=== PATIENT | male | born 1955 | race Caucasian/White ===

== ENCOUNTER 2017-03-29 08:49 | Emergency (ER) | payer MEDICARE ==
[2012-04-16 21:26] VITALS: BMI 40.8
== END 2017-03-29 12:17 | disposition home or self-care (01) ==
LOC: D.ER 08:49
DX: S92.352A Displaced fracture of fifth metatarsal bone, left foot, initial encounter for closed fracture (principal); W19.XXXA Unspecified fall, initial encounter; Y93.89 Activity, other specified; Y92.029 Unspecified place in mobile home as the place of occurrence of the external cause; B19.20 Unspecified viral hepatitis C without hepatic coma; I10 Essential (primary) hypertension; F17.200 Nicotine dependence, unspecified, uncomplicated

== ENCOUNTER 2017-06-20 10:00 | Inpatient (IN) | payer MEDICARE, MEDICAID ==
--- NOTE | ~2017-06-20 | DS ---
PATIENT:JOHANNE TAVERASN :57 MEDICAL RECORD: [id number] DISCHARGE SUMMARY ADMISSION DATE: 06/20/17 DISCHARGE DATE: 06/27/17 ADMIT DATE: 06/20/2017 DISCHARGE DATE: 06/27/2017 DISCHARGE DIAGNOSES: 1. Pleuritic chest pain. 2. Pulmonary emboli. 3. Pneumonia. 4. Chronic obstructive pulmonary disease exacerbation. 5. Hemoptysis. 6. Acute cough. 7. Anemia. 8. Hypotension. 9. Coronary artery disease. 10. Gastroesophageal reflux disease. 11. Chronic pain, on methadone use. 12. Chronic deep venous thrombosis in the left superficial femoral vein and popliteal vein. CONSULTS: [facility]adhan IMAGING STUDIES: 1. CT of the chest, which shows pulmonary emboli in the left segmental pulmonary artery with some airspace consolidation in the left lingula suggestive of pneumonia and a small left pleural effusion. 2. Chest x-ray, which shows lingular consolidation. HOSPITAL COURSE: The full H&P is listed elsewhere on the chart for this 61-year-old patient who was admitted with hemoptysis and pleuritic chest pain. The patient underwent CTA of the chest, which was positive for pulmonary emboli as well as pneumonia, was placed in the inpatient setting on broad-spectrum antibiotics including Rocephin and azithromycin. An aggressive pulmonary toilet with DuoNeb, Spiriva were instituted as well as Lovenox 1 mg/kg q.12 hours. GI prophylaxis was also instituted. A venous Doppler did reveal chronic deep vein thrombus changes in the distal left superficial femoral vein and popliteal, but no evidence of an acute DVT. Smoking cessation was discussed with the patient, O2 was titrated during hospitalization, O2 sat greater than or equal to 92%. The patient's clinical condition did improve with aggressive pulmonary toilet, antibiotic therapy was deescalated, the patient was thought to be stable to discharge to home to follow up in the outpatient setting with pulmonology and primary care. See med rec. TRANSINT:[id number] Voice Confirmation ID: [id number] DOCUMENT ID: [id number] Dictated By: BERKLEY WHIPPLE I have interviewed/examined the above patient and agree with these documented findings. DISCHARGE SUMMARY REPORT [id number] NITINJOHANNEJUMANA GARCIA, LUL MCMILLAN at 1341 at 1029 CC: [id number] DICTATION DATE: 07/10/17 0838 DISTANCE EDUCATION FACULTY LIAISON: 07/10/17 1002 DIS IN 06/27/17 [place] [id number] [place] [address]
[2017-06-20 13:11] LABS: BASOPHILS 0.1 % (0-2); EOSINOPHILS 3.3 % (0-7); HEMATOCRIT 38.2 % (42.0-54.0); HEMOGLOBIN 12.8 g/dL (13.5-17.5); IMMATURE GRANULOCYTES 0.4 % (0-5); LYMPHOCYTES 18.3 % (15-50); MCHC 33.5 g/dL (31.0-37.0); MCV 89.5 fL (80.0-100.0); MEAN PLATELET VOLUME 8.9 fL (7.4-10.4); MONOCYTES 11.7 % (2-11); NEUTROPHILS 66.2 % (40-80); PLATELET COUNT 205 10x3/uL (130-400); RBC 4.27 10x6/uL (4.20-6.10); RDW 13.9 % (11.5-14.5)
[2017-06-20 13:34] LABS: ANION GAP 13.2 mmol/L (8-16); BILIRUBIN - TOTAL 0.45 mg/dL (0.2-1.3); CALCIUM 8.7 mg/dL (8.5-10.1); CARBON DIOXIDE 28.1 mmol/L (21.0-32.0); CREATININE - SERUM 1.1 mg/dL (0.6-1.3); POTASSIUM - SERUM 4.3 mmol/L (3.5-5.1)
[2017-06-20 14:22] LABS: APPEARANCE CLEAR (CLEAR); BILIRUBIN NEGATIVE (NEGATIVE); COLOR YELLOW (YELLOW); GLUCOSE NEGATIVE (NEGATIVE); KETONE MODERATE mg/dL (NEGATIVE); NITRITE NEGATIVE (NEGATIVE); PROTEIN NEGATIVE (NEGATIVE)
[2017-06-20 14:23] LABS: BACTERIA FEW /hpf (NONE SEEN); EPITHELIAL CELLS OCC /hpf (0-5); MUCUS <1+ /lpf (NONE SEEN); RED CELLS - URINE OCC /hpf (0-5); SPERMATOZOA PRESENT /hpf (NONE SEEN); WHITE CELLS - URINE OCC /hpf (0-5)
[2017-06-20 18:56] VITALS: BP 134/78
[2017-06-20] MEDS ORDERED: METHADONE10 MG/5 ML PO (23:02)
[2017-06-20] MEDS ORDERED: KLONOPIN1 MG PO (23:03)
[2017-06-20 23:40] VITALS: BP 119/76; BMI 40.8
[2017-06-21 04:00] VITALS: BP 117/69
[2017-06-21 05:16] LABS: BASOPHILS 0.2 % (0-2); EOSINOPHILS 6.1 % (0-7); HEMATOCRIT 38.3 % (42.0-54.0); HEMOGLOBIN 12.6 g/dL (13.5-17.5); IMMATURE GRANULOCYTES 0.5 % (0-5); LYMPHOCYTES 28.6 % (15-50); MCH 29.4 pg (26.0-34.0); MCHC 32.9 g/dL (31.0-37.0); MCV 89.5 fL (80.0-100.0); MEAN PLATELET VOLUME 9.1 fL (7.4-10.4); MONOCYTES 11.6 % (2-11); PLATELET COUNT 215 10x3/uL (130-400); RBC 4.28 10x6/uL (4.20-6.10); RDW 13.9 % (11.5-14.5); WBC 5.9 10x3/uL (4.8-10.8)
[2017-06-21 05:47] LABS: ALBUMIN 2.7 g/dL (3.4-5.0); ANION GAP 12.7 mmol/L (8-16); BILIRUBIN - TOTAL 0.4 mg/dL (0.2-1.3); CALCIUM 8.5 mg/dL (8.5-10.1); CARBON DIOXIDE 28.5 mmol/L (21.0-32.0); CREATININE - SERUM 1.1 mg/dL (0.6-1.3); POTASSIUM - SERUM 4.2 mmol/L (3.5-5.1); PROTEIN - SERUM 6.7 g/dL (6.4-8.2)
[2017-06-21 09:02] VITALS: BP 140/75
[2017-06-21 11:35] VITALS: BMI 40.8
[2017-06-21 12:24] VITALS: BP 130/86
[2017-06-21 16:21] VITALS: BP 115/69
[2017-06-21 20:00] VITALS: BP 138/65
[2017-06-22] VITALS: BP 166/82
[2017-06-22 04:00] VITALS: BP 135/46
[2017-06-22 05:31] LABS: BASOPHILS 0.2 % (0-2); EOSINOPHILS 4.7 % (0-7); HEMATOCRIT 36.7 % (42.0-54.0); HEMOGLOBIN 11.9 g/dL (13.5-17.5); IMMATURE GRANULOCYTES 0.5 % (0-5); MCH 29.2 pg (26.0-34.0); MCHC 32.4 g/dL (31.0-37.0); MEAN PLATELET VOLUME 8.7 fL (7.4-10.4); MONOCYTES 9.8 % (2-11); NEUTROPHILS 58.8 % (40-80); PLATELET COUNT 228 10x3/uL (130-400); RBC 4.08 10x6/uL (4.20-6.10); RDW 13.8 % (11.5-14.5); WBC 6.2 10x3/uL (4.8-10.8)
[2017-06-22 05:35] LABS: APTT 33.4 SECONDS (22.8-39.4); INR 1.03 (0.85-1.17); PROTIME 13.1 SECONDS (11.6-15.0)
[2017-06-22 05:45] LABS: ALBUMIN 2.8 g/dL (3.4-5.0); ANION GAP 12.5 mmol/L (8-16); BILIRUBIN - TOTAL 0.22 mg/dL (0.2-1.3); CALCIUM 8.2 mg/dL (8.5-10.1); CARBON DIOXIDE 27.6 mmol/L (21.0-32.0); CREATININE - SERUM 1.2 mg/dL (0.6-1.3); MAGNESIUM - SERUM 2.1 mg/dL (1.8-2.4); PHOSPHOROUS 3.8 mg/dL (2.5-4.9); POTASSIUM - SERUM 4.1 mmol/L (3.5-5.1); PROTEIN - SERUM 6.6 g/dL (6.4-8.2)
[2017-06-22 08:55] VITALS: BP 130/68
[2017-06-22 13:01] VITALS: BP 112/74
[2017-06-22 16:31] VITALS: BP 141/79
[2017-06-22 20:00] VITALS: BP 140/76
[2017-06-23] VITALS (7 sets, daily range): BP systolic 116–157; BP diastolic 66–84
[2017-06-24 07:57] VITALS: BP 119/80
[2017-06-24 10:08] LABS: PROTEIN S - FREE 74 % (57-157); PROTEIN S - TOTAL 69 % (60-150)
[2017-06-24 11:08] LABS: LUPUS - INTERPRETATION Comment: (()); LUPUS - THROMBIN TIME 18.3 sec (0.0-23.0); LUPUS - dRVVT 38.6 sec (0.0-47.0); PTT-LA 40.8 sec (0.0-51.9)
[2017-06-24 12:08] LABS: PROTEIN S - FREE 61 % (57-157); PROTEIN S - FUNCTIONAL 69 % (63-140); PROTEIN S - TOTAL 68 % (60-150)
[2017-06-24 12:34] VITALS: BP 124/63
[2017-06-24 15:45] VITALS: BP 125/84
[2017-06-24 20:00] VITALS: BP 137/73
[2017-06-24 22:26] VITALS: BP 122/63
[2017-06-25] VITALS: BP 113/58
[2017-06-25 04:00] VITALS: BP 116/73
[2017-06-25 08:45] VITALS: BP 121/77
[2017-06-25 12:31] VITALS: BP 128/87
[2017-06-25 12:46] LABS: BASOPHILS 0.3 % (0-2); EOSINOPHILS 9.7 % (0-7); HEMOGLOBIN 13.6 g/dL (13.5-17.5); IMMATURE GRANULOCYTES 0.5 % (0-5); MCH 29.4 pg (26.0-34.0); MCHC 32.4 g/dL (31.0-37.0); MCV 90.7 fL (80.0-100.0); NEUTROPHILS 61.5 % (40-80); RBC 4.63 10x6/uL (4.20-6.10); WBC 7.6 10x3/uL (4.8-10.8)
[2017-06-25 12:49] LABS: PLATELET COUNT 282 10x3/uL (130-400)
[2017-06-25 13:01] LABS: ALBUMIN 3.3 g/dL (3.4-5.0); ANION GAP 13.9 mmol/L (8-16); BILIRUBIN - TOTAL 0.28 mg/dL (0.2-1.3); CALCIUM 8.7 mg/dL (8.5-10.1); CARBON DIOXIDE 27.1 mmol/L (21.0-32.0); CREATININE - SERUM 1.3 mg/dL (0.6-1.3); PROTEIN - SERUM 7.5 g/dL (6.4-8.2)
[2017-06-25 13:12] LABS: ACLA - IGG AB <9 GPL U/mL (0-14); ACLA - IGM AB 14 MPL U/mL (0-12)
[2017-06-25 16:47] VITALS: BP 123/66
[2017-06-26] VITALS: BP 140/71
[2017-06-26 05:55] LABS: BASOPHILS 0.3 % (0-2); EOSINOPHILS 9.3 % (0-7); HEMATOCRIT 41.5 % (42.0-54.0); HEMOGLOBIN 13.5 g/dL (13.5-17.5); IMMATURE GRANULOCYTES 0.5 % (0-5); LYMPHOCYTES 31.5 % (15-50); MCH 29.4 pg (26.0-34.0); MCHC 32.5 g/dL (31.0-37.0); MCV 90.4 fL (80.0-100.0); MEAN PLATELET VOLUME 8.9 fL (7.4-10.4); MONOCYTES 8.5 % (2-11); NEUTROPHILS 49.9 % (40-80); PLATELET COUNT 259 10x3/uL (130-400); RBC 4.59 10x6/uL (4.20-6.10); RDW 13.8 % (11.5-14.5); WBC 7.3 10x3/uL (4.8-10.8)
[2017-06-26 06:14] LABS: ALBUMIN 3.2 g/dL (3.4-5.0); ANION GAP 11.7 mmol/L (8-16); BILIRUBIN - TOTAL 0.22 mg/dL (0.2-1.3); CALCIUM 8.9 mg/dL (8.5-10.1); CREATININE - SERUM 1.2 mg/dL (0.6-1.3); PROTEIN - SERUM 7.1 g/dL (6.4-8.2)
[2017-06-26 06:24] LABS: POTASSIUM - SERUM 4.7 mmol/L (3.5-5.1)
[2017-06-26 09:02] VITALS: BP 108/65
[2017-06-26 12:45] VITALS: BP 145/97
[2017-06-26 15:24] LABS: PROTEIN C - ANTIGEN 84 % (60-150); PROTEIN C - FUNCTIONAL 115 % (73-180)
[2017-06-26 17:19] VITALS: BP 139/81
[2017-06-26 18:10] LABS: FACTOR II DNA ANALYSIS Negative (())
[2017-06-27] VITALS: BP 119/77
[2017-06-27 04:00] VITALS: BP 119/77
[2017-06-27 05:31] LABS: BASOPHILS 0.1 % (0-2); EOSINOPHILS 8.1 % (0-7); HEMATOCRIT 42.6 % (42.0-54.0); HEMOGLOBIN 13.8 g/dL (13.5-17.5); IMMATURE GRANULOCYTES 0.7 % (0-5); MCH 29.5 pg (26.0-34.0); MCHC 32.4 g/dL (31.0-37.0); MEAN PLATELET VOLUME 8.9 fL (7.4-10.4); MONOCYTES 9.7 % (2-11); NEUTROPHILS 56.4 % (40-80); PLATELET COUNT 245 10x3/uL (130-400); RBC 4.68 10x6/uL (4.20-6.10); RDW 13.9 % (11.5-14.5); WBC 7.5 10x3/uL (4.8-10.8)
[2017-06-27 05:54] LABS: ALBUMIN 3.4 g/dL (3.4-5.0); ANION GAP 10.8 mmol/L (8-16); BILIRUBIN - TOTAL 0.2 mg/dL (0.2-1.3); CALCIUM 8.6 mg/dL (8.5-10.1); CARBON DIOXIDE 30.8 mmol/L (21.0-32.0); CREATININE - SERUM 1.1 mg/dL (0.6-1.3); POTASSIUM - SERUM 4.6 mmol/L (3.5-5.1); PROTEIN - SERUM 7.3 g/dL (6.4-8.2)
[2017-06-27 08:01] VITALS: BP 122/61
[2017-06-27] MEDS ORDERED: IPRAT-ALBUT 0.5-3 ML INH (12:03)
[2017-06-27] MEDS ORDERED: OMNICEF300 MG PO (12:03)
[2017-06-27] MEDS ORDERED: BROVANA15 MCG/2 M INH (12:03)
[2017-06-27] MEDS ORDERED: NICODERM C1 PATCH .1 TRANSDERM (12:03)
[2017-06-27] MEDS ORDERED: ELIQUIS5 MG PO ×2 (12:04→12:05)
[2017-06-27] MEDS ORDERED: BENZONATATE200 MG PO (12:04)
[2017-06-27] MEDS ORDERED: FLORAJEN3 CAPS460 MG PO (12:04)
[2017-06-27] MEDS ORDERED: MUCINEX DM ER1 EAC1 PO (12:04)
[2017-06-27] MEDS ORDERED: PULMICORT0.5 MG/21 UPD (12:04)
[2017-06-28 15:25] LABS: IMMUNOGLOBULIN E 404 IU/mL (0-100)
== END 2017-06-27 13:23 | disposition home health service (06) | DRG 177 ==
LOC: D.ER 10:00 → D.MS 17:47
PROVIDERS: Family Medicine; Internal Medicine Pulmonary Disease; Nurse Practitioner Family
DX: J15.6 Pneumonia due to other Gram-negative bacteria (principal); I26.99 Other pulmonary embolism without acute cor pulmonale; J96.21 Acute and chronic respiratory failure with hypoxia; J44.0 Chronic obstructive pulmonary disease with (acute) lower respiratory infection; J44.1 Chronic obstructive pulmonary disease with (acute) exacerbation; F17.203 Nicotine dependence unspecified, with withdrawal; J90 Pleural effusion, not elsewhere classified; I82.512 Chronic embolism and thrombosis of left femoral vein; I82.532 Chronic embolism and thrombosis of left popliteal vein; J13 Pneumonia due to Streptococcus pneumoniae; E78.5 Hyperlipidemia, unspecified; K21.9 Gastro-esophageal reflux disease without esophagitis; B19.20 Unspecified viral hepatitis C without hepatic coma; I10 Essential (primary) hypertension; I25.10 Atherosclerotic heart disease of native coronary artery without angina pectoris

== ENCOUNTER → 2017-09-07 12:06 | Outpatient (CLI) | payer MEDICARE, MEDICAID ==
[~2017-09-07 12:06] MED LIST: BENZONATATE200 MG PO; BROVANA15 MCG/2 M INH; ELIQUIS5 MG PO; FLORAJEN3 CAPS460 MG PO; IPRAT-ALBUT 0.5-3 ML INH; KLONOPIN1 MG PO; METHADONE10 MG/5 ML PO; MUCINEX DM ER1 EAC1 PO; NICODERM C1 PATCH .1 TRANSDERM; OMNICEF300 MG PO; PULMICORT0.5 MG/21 UPD
== END | disposition home or self-care (01) ==
LOC: D.RT 12:06
DX: R06.02 Shortness of breath (principal)

== ENCOUNTER 2017-12-29 12:01 | Emergency (ER) | payer MEDICARE, MEDICAID ==
[~2017-12-29] VITALS: Ht 170.2 cm; Wt 120.5 kg
[2017-12-29 12:18] VITALS: Ht 170.2 cm; Wt 120.5 kg
[2017-12-29 12:57] LABS: APPEARANCE CLEAR (CLEAR); BILIRUBIN NEGATIVE (NEGATIVE); COLOR YELLOW (YELLOW); GLUCOSE NEGATIVE (NEGATIVE); KETONE NEGATIVE (NEGATIVE); NITRITE NEGATIVE (NEGATIVE); PROTEIN NEGATIVE (NEGATIVE); SPECIFIC GRAVITY 1.025 (1.005-1.020); UROBILINOGEN NORMAL (NORMAL)
[2017-12-29 13:22] LABS: BASOPHILS 0.4 % (0-2); EOSINOPHILS 5.5 % (0-7); HEMATOCRIT 44.7 % (42.0-54.0); HEMOGLOBIN 15.1 g/dL (13.5-17.5); IMMATURE GRANULOCYTES 0.4 % (0-5); LYMPHOCYTES 31.6 % (15-50); MCH 30.5 pg (26.0-34.0); MCHC 33.8 g/dL (31.0-37.0); MCV 90.3 fL (80.0-100.0); MEAN PLATELET VOLUME 9.9 fL (7.4-10.4); MONOCYTES 9.4 % (2-11); NEUTROPHILS 52.7 % (40-80); PLATELET COUNT 172 10x3/uL (130-400); RBC 4.95 10x6/uL (4.20-6.10); RDW 13.3 % (11.5-14.5); WBC 7.5 10x3/uL (4.8-10.8)
[2017-12-29 13:30] LABS: INR 1.07 (0.85-1.17); PROTIME 13.5 SECONDS (11.6-15.0)
[2017-12-29 13:36] LABS: ALBUMIN 3.7 g/dL (3.4-5.0); ANION GAP 8.4 mmol/L (8-16); BILIRUBIN - TOTAL 0.47 mg/dL (0.2-1.3); CALCIUM 8.6 mg/dL (8.5-10.1); CREATININE - SERUM 1.1 mg/dL (0.6-1.3); POTASSIUM - SERUM 4.4 mmol/L (3.5-5.1); PROTEIN - SERUM 6.9 g/dL (6.4-8.2)
[2017-12-29] MEDS ORDERED: MACROBID100 MG PO (17:54)
[2017-12-29 18:19] VITALS: BP 125/68
== END 2017-12-29 18:20 | disposition home or self-care (01) ==
LOC: D.ER 12:01
PROVIDERS: Family Medicine
DX: R86.9 Unspecified abnormal finding in specimens from male genital organs (principal); R10.9 Unspecified abdominal pain; Z87.19 Personal history of other diseases of the digestive system; B19.20 Unspecified viral hepatitis C without hepatic coma; I10 Essential (primary) hypertension; I25.10 Atherosclerotic heart disease of native coronary artery without angina pectoris; J44.9 Chronic obstructive pulmonary disease, unspecified; F17.200 Nicotine dependence, unspecified, uncomplicated

== ENCOUNTER 2018-04-24 11:07 | Emergency (ER) | payer MEDICARE, MEDICAID ==
[~2018-04-24] VITALS: Ht 170.2 cm; Wt 117.9 kg
[~2018-04-24 11:07] MED LIST changes: +MACROBID100 MG PO
[2018-04-24 11:30] VITALS: Ht 170.2 cm; Wt 117.9 kg
[2018-04-24] MEDS ORDERED: ULTRAM50 MG PO (13:15)
[2018-04-24 14:16] VITALS: BP 131/76
== END 2018-04-24 14:16 | disposition home or self-care (01) ==
LOC: D.ER 11:07
DX: M79.661 Pain in right lower leg (principal); J44.9 Chronic obstructive pulmonary disease, unspecified; Z86.718 Personal history of other venous thrombosis and embolism; Z86.19 Personal history of other infectious and parasitic diseases; F17.200 Nicotine dependence, unspecified, uncomplicated

== ENCOUNTER 2018-06-20 16:20 | Emergency (ER) | payer MEDICARE, MEDICAID ==
[~2018-06-20] VITALS: Ht 170.2 cm; Wt 118.2 kg
[~2018-06-20 16:20] MED LIST changes: +ULTRAM50 MG PO
[2018-06-20 16:38] VITALS: Ht 170.2 cm; Wt 118.2 kg
[2018-06-20] MEDS ORDERED: PREDNISONE20 MG PO (18:44)
[2018-06-20 19:12] VITALS: BP 180/89
== END 2018-06-20 19:13 | disposition home or self-care (01) ==
LOC: D.ER 16:20
DX: M25.561 Pain in right knee (principal); M76.9 Unspecified enthesopathy, lower limb, excluding foot

== ENCOUNTER 2018-06-23 11:41 | Emergency (ER) | payer MEDICARE, MEDICAID ==
[~2018-06-23] VITALS: Ht 170.2 cm; Wt 118.2 kg
[~2018-06-23 11:41] MED LIST changes: +PREDNISONE20 MG PO
[2018-06-23 11:52] VITALS: Ht 170.2 cm; Wt 118.2 kg
[2018-06-23] MEDS ORDERED: TALWIN NX1 TAB PO (15:12)
[2018-06-23] MEDS ORDERED: ZOFRAN ODT4 MG/UDTAB PO (15:12)
[2018-06-23 15:32] VITALS: BP 141/81
== END 2018-06-23 15:34 | disposition home or self-care (01) ==
LOC: D.ER 11:41
DX: M25.561 Pain in right knee (principal); E66.9 Obesity, unspecified; Z86.19 Personal history of other infectious and parasitic diseases; I10 Essential (primary) hypertension; I25.10 Atherosclerotic heart disease of native coronary artery without angina pectoris; J44.9 Chronic obstructive pulmonary disease, unspecified; F17.200 Nicotine dependence, unspecified, uncomplicated

== ENCOUNTER → 2018-07-16 11:01 | Outpatient (CLI) | payer MEDICARE, MEDICAID ==
[2018-06-23 11:52] VITALS: BMI 40.8
[~2018-07-16 11:01] MED LIST changes: +TALWIN NX1 TAB PO; +ZOFRAN ODT4 MG/UDTAB PO
== END | disposition home or self-care (01) ==
LOC: D.MRI 09:00
PROVIDERS: ATTEND Nurse Practitioner Family
DX: M17.11 Unilateral primary osteoarthritis, right knee (principal)

== ENCOUNTER 2019-01-02 12:54 | Emergency (ER) | payer MEDICARE, MEDICAID ==
[~2019-01-02] VITALS: Ht 170.2 cm; Wt 118.2 kg
[2019-01-02 12:57] VITALS: Ht 170.2 cm; Wt 118.2 kg
[2019-01-02] MEDS ORDERED: ATARAX 25 MG TA25 MG PO (14:25)
[2019-01-02 15:09] VITALS: BP 143/89
== END 2019-01-02 15:06 | disposition home or self-care (01) ==
LOC: D.ER 12:54
DX: F13.239 Sedative, hypnotic or anxiolytic dependence with withdrawal, unspecified (principal); F41.9 Anxiety disorder, unspecified; T42.4X5A Adverse effect of benzodiazepines, initial encounter; I10 Essential (primary) hypertension; J44.9 Chronic obstructive pulmonary disease, unspecified

== ENCOUNTER 2019-03-22 12:53 | Inpatient (IN) | payer MEDICARE, MEDICAID ==
[~2019-03-22] VITALS: Ht 170.2 cm; Wt 110.7 kg
[~2019-03-22 12:53] MED LIST changes: +ATARAX 25 MG TA25 MG PO
[2019-03-22 13:50] LABS: BASOPHILS 0.1 % (0-2); EOSINOPHILS 0.7 % (0-7); HEMATOCRIT 47.9 % (42.0-54.0); HEMOGLOBIN 15.8 g/dL (13.5-17.5); IMMATURE GRANULOCYTES 0.3 % (0-5); LYMPHOCYTES 20.7 % (15-50); MCH 30.6 pg (26.0-34.0); MCV 92.6 fL (80.0-100.0); NEUTROPHILS 70.2 % (40-80); PLATELET COUNT 224 10x3/uL (130-400); RBC 5.17 10x6/uL (4.20-6.10); RDW 13.5 % (11.5-14.5); WBC 8.7 10x3/uL (4.8-10.8)
[2019-03-22 13:51] LABS: APPEARANCE CLEAR (CLEAR); BILIRUBIN NEGATIVE (NEGATIVE); COLOR STRAW (YELLOW); GLUCOSE NEGATIVE (NEGATIVE); KETONE NEGATIVE (NEGATIVE); NITRITE NEGATIVE (NEGATIVE); PROTEIN NEGATIVE (NEGATIVE); UROBILINOGEN NORMAL (NORMAL)
[2019-03-22 13:58] LABS: CALC OSMOLALITY 279 mosm/kg (275-300); CALCIUM 8.9 mg/dL (8.5-10.1); CARBON DIOXIDE 28.6 mmol/L (21.0-32.0); CHLORIDE - SERUM 100 mmol/L (98-107); CREATININE - SERUM 1.2 mg/dL (0.6-1.3); GLUCOSE 142 mg/dL (74-106); POTASSIUM - SERUM 4.1 mmol/L (3.5-5.1); SODIUM 138 mmol/L (136-145); UREA NITROGEN 17 mg/dL (7-18); eGFR NON AFRICAN AMERICAN 65 mL/min (90-120)
[2019-03-22 13:59] LABS: APTT 63.7 SECONDS (22.8-39.4)
[2019-03-22 14:09] LABS: INR 1.24 (0.85-1.17); PROTIME 15.1 SECONDS (11.6-15.0)
[2019-03-22 14:14] LABS: ALKALINE PHOSPHATASE 78 U/L (46-116); ALT (SGPT) 28 U/L (10-68); BILIRUBIN - TOTAL 0.56 mg/dL (0.2-1.3); CKMB 3.1 U/L (0.0-3.6); CREATINE KINASE 119 UL (21-232); PROTEIN - SERUM 7.8 g/dL (6.4-8.2)
[2019-03-22 14:16] LABS: PRO BNP 0 pg/mL (0-125); TROPONIN-I < 0.017 ng/mL (0.000-0.060)
[2019-03-22 14:17] LABS: ALBUMIN < 3.4 g/dL (3.4-5.0)
--- NOTE | 2019-03-22 15:28 | NUR ---
PATIENT TO RADIOLOGY VIA WHEELCHAIR.
--- NOTE | 2019-03-22 17:50 | NUR ---
PATIENT RETURNED FROM RADIOLOGY;
[2019-03-22 18:14] VITALS: BP 144/88
[2019-03-22 19:20] VITALS: BP 143/82
--- NOTE | 2019-03-22 19:30 | NUR ---
PT ARRIVED TO ROOM. RR EVEN AND UNLABORED. NO S/S OF DISTRESS NOTED. EDUCATED USE OF CALLL LIGHT FOR ASSISTANCE. WILL MONITOR.
[2019-03-22 20:05] VITALS: BP 144/86
[2019-03-22 22:23] VITALS: BP 144/86
[2019-03-22 23:44] VITALS: BP 110/58
--- NOTE | 2019-03-23 02:44 | NUR ---
PT RESTING QUIETLY. NO S/S OF DISTRESS NOTED. NO C/O OR CONCERS EXPRESSED. CALL LIGHT IN REACH, WILL CTM.
[2019-03-23 04:05] VITALS: BP 108/63
[2019-03-23 04:32] LABS: BASOPHILS 0.1 % (0-2); EOSINOPHILS 0.4 % (0-7); HEMATOCRIT 46.2 % (42.0-54.0); IMMATURE GRANULOCYTES 0.3 % (0-5); LYMPHOCYTES 12.3 % (15-50); MCHC 32.5 g/dL (31.0-37.0); MCV 92.4 fL (80.0-100.0); MEAN PLATELET VOLUME 10.5 fL (7.4-10.4); MONOCYTES 2.7 % (2-11); NEUTROPHILS 84.2 % (40-80); PLATELET COUNT 184 10x3/uL (130-400); RDW 13.6 % (11.5-14.5)
[2019-03-23 04:52] LABS: ALBUMIN 3.6 g/dL (3.4-5.0); ANION GAP 13.6 mmol/L (8-16); BILIRUBIN - TOTAL 0.5 mg/dL (0.2-1.3); CALCIUM 8.4 mg/dL (8.5-10.1); CARBON DIOXIDE 25.4 mmol/L (21.0-32.0); CREATININE - SERUM 1.2 mg/dL (0.6-1.3); PROTEIN - SERUM 7.2 g/dL (6.4-8.2)
--- NOTE | 2019-03-23 07:30 | NUR ---
A/A/OX4. SITTING UP ON SIDE OF BED AND ASKING ABOUT GETTING HIS METHADONE ORDERED. STATES HE WAS SUPPPOSED TO HAVE IT AT 6 AM. TOLD HIM I WOULD CONTACT WATER TREATMENT PLANT REPAIRER AND SEE ABOUT GETTING IT ORDERED FOR HIM. CONTACTED [facility] AND ORDER RECEIVED. PT INFORMED HE WOULD BE RECEIVING MED. NO OTHER REQUESTS VOICED. ASSESSMENT COMPLETED. IV PATENT TO LEFT AC WITHOUT REDNESS OR EDEMA. WILL CONTINUE POC.
[2019-03-23 08:08] VITALS: BP 175/77
[2019-03-23 10:21] LABS: UDS - AMPHET NEGATIVE QUAL (NEGATIVE); UDS - BARB NEGATIVE QUAL (NEGATIVE); UDS - BENZO NEGATIVE QUAL (NEGATIVE); UDS - COCAINE NEGATIVE QUAL (NEGATIVE); UDS - OPIATE NEGATIVE QUAL (NEGATIVE); UDS - PCP NEGATIVE QUAL (NEGATIVE); UDS - THC NEGATIVE QUAL (NEGATIVE)
[2019-03-23 11:44] VITALS: BP 136/71
--- NOTE | 2019-03-23 14:13 | NUR ---
I AGREE WITH THE CONCURRENT ASSESSMENT FROM THE ENVIRONMENTAL PROTECTION GEOLOGIST ON STAFF
[2019-03-23 16:27] VITALS: BP 139/97
--- NOTE | 2019-03-23 19:01 | NUR ---
PT AWAKE AND ALERT BED LOW AND LOCKED WITH CALL LIGHT IN REACH DENIES NEEDS AT THIS TIME LCTA SLTY DEMINISHED
[2019-03-23 20:20] VITALS: BP 134/65
[2019-03-24 00:37] VITALS: BP 135/68
--- NOTE | 2019-03-24 02:56 | NUR ---
I have reviewed this patient and I concur with the Shift Assessment completed by the Licensed Practical Nurse today this shift.
[2019-03-24 04:30] VITALS: BP 113/49
[2019-03-24 05:32] LABS: BASOPHILS 0 % (0-2); EOSINOPHILS 0 % (0-7); HEMATOCRIT 40.6 % (42.0-54.0); HEMOGLOBIN 13.2 g/dL (13.5-17.5); IMMATURE GRANULOCYTES 0.2 % (0-5); MCH 29.9 pg (26.0-34.0); MCHC 32.5 g/dL (31.0-37.0); MCV 91.9 fL (80.0-100.0); MEAN PLATELET VOLUME 10.5 fL (7.4-10.4); MONOCYTES 4.4 % (2-11); NEUTROPHILS 88.4 % (40-80); PLATELET COUNT 194 10x3/uL (130-400); RBC 4.42 10x6/uL (4.20-6.10); RDW 13.6 % (11.5-14.5); WBC 8.6 10x3/uL (4.8-10.8)
[2019-03-24 05:40] LABS: ANION GAP 13.5 mmol/L (8-16); CALCIUM 8.3 mg/dL (8.5-10.1); CARBON DIOXIDE 24.2 mmol/L (21.0-32.0); CREATININE - SERUM 1.1 mg/dL (0.6-1.3); POTASSIUM - SERUM 4.7 mmol/L (3.5-5.1)
[2019-03-24 07:57] VITALS: BP 130/70
[2019-03-24 09:25] VITALS: Ht 170.2 cm; Wt 110.7 kg
[2019-03-24 11:37] VITALS: BP 104/71
--- NOTE | 2019-03-24 13:15 | NUR ---
PT STATES HE HAS TO RIDE THE BUS HOME AND THAT IT STOPS RUNNING AT 1700 AND HE FORGOT TO TELL VANESSA THAT SAID HE WAS GOING HOME. DEDE AND SPOKE WITH SANDRA MENDEZ ABOUT THIS AND SHE STATED "OK".
[2019-03-24] MEDS ORDERED: OMNICEF300 MG PO (13:26)
[2019-03-24] MEDS ORDERED: ZITHROMAX500 MG PO (13:26)
[2019-03-24] MEDS ORDERED: STERAPRED DS 1010 MG PO (13:27)
--- NOTE | 2019-03-24 13:53 | NUR ---
I have reviewed this patient and I concur with the Shift Assessment completed by the Licensed Practical Nurse today this shift.
--- NOTE | 2019-03-24 13:54 | NUR ---
UPON ADMIT, PATIENT HAS NOT HAD A FLU SHOT. BEING DISCHARGED ON ORAL ANTIBIOTICS FOR PNEUMONIA. NO FLU SHOT GIVEN.
--- NOTE | 2019-03-24 14:34 | MORECARE ---
CASE MANAGEMENT DISCHARGE SUMMARY PATIENT: MILTON TAVERAS KELLY UNIT: [id number] ADM DATE: 03/22/19 AGE: 63 : 57 SEX: M ROOM/BED: D.2102 AUTHOR: SRINIVAS PAYNE PHYSICIAN: REFERRING PHYSICIAN: LJ SHAW MD DATE OF SERVICE: 03/24/19 Discharge Plan Patient Name: MILTON TAVERAS [facility] [facility] 1955 Planned Disposition: Home Anticipated Discharge Date: 03/24/19 Discharge Date: Expected LOS: 2 Initial Reviewer: [email or web address] Initial Review Date: 03/24/2019 Generated: 03/24/19 3:33 pm Patient Name: MILTON TAVERAS Page 09677 at 1434 All edits/amendments must be made on the electronic document DICTATION DATE: 03/24/19 143 PIECER UP: RADHA 03/24/19 1433 RPT#: [id number] DC DATE: STATUS: ADM IN [facility] [address] [place] [address] END OF REPORT
--- NOTE | 2019-03-24 14:42 | MORECARE ---
CASE MANAGEMENT DISCHARGE SUMMARY PATIENT: MILTON TAVERAS KELLY UNIT: [id number] ADM DATE: 03/22/19 AGE: 63 : 57 SEX: M ROOM/BED: D.2102 AUTHOR: ELMER,DOC PHYSICIAN: REFERRING PHYSICIAN: LJ SHAW MD DATE OF SERVICE: 03/24/19 Discharge Plan Patient Name: IMLTON TAVERAS Facility: [facility]:[place] : 1955 Planned Disposition: Home Anticipated Discharge Date: 03/24/19 Discharge Date: Expected LOS: 2 Initial Reviewer: [email or web address] Initial Review Date: 03/24/2019 Generated: 03/24/19 3:42 pm Comments DCP- Discharge Planning Updated by [email or web address]: Fortunato Cha on 03/24/19 1:[address] Patient Name: MILTON TAVERAS Admission Status: ER Accout number: [id number] Admission Date: 03-22-2019 : 1955 Admission Diagnosis: Attending: COLIN, Current LOS: 2 Anticipated DC Date: 03-24-2019 Planned Disposition: Home Primary Insurance: [facility] MEDICARE SOLUTIONS Discharge Planning Comments: CM MET WITH PT IN ROOM TO DISCUSS DISCHARGE PLANNING AND NEEDS. PT REPORTS LIVING AT HOME INDEPENDENTLY AND ALONE. PT HAS HOME OXYGEN HE USES NEEDED AND A NEBULIZER. PT DOES NOT REMEMBER THE NAME OF HIS MEDICAL EQUIPMENT PROVIDER. PT HAS NO OUTSIDE SERVICES ASSISTING IN THE HOME. CM DISCUSSED AVAILABILITY OF HOME HEALTH, REHAB SERVICES AND MEDICAL EQUIPMENT. PT DENIES DISCHARGE NEEDS, REPORTS HE WILL BE RIDING THE [employer] BUS FOR DISCHARGE HOME TODAY. SALES AGENT TRADING STAMPS NURSE NOTIFIED. Tower Truck Driver: Fortunato Cha DCPIA - Discharge Planning Initial Assessment Updated by [email or web address]: Fortunato Cha on 03/24/19 2:36 pm * Is the patient Alert and Oriented? Yes * How many steps to enter\exit or inside your home? ELEVATOR * PCP DR. DOBSON * Pharmacy [facility] * Preadmission Environment Home Alone * ADLs Independent * Equipment Nebulizer Oxygen * Other Equipment UNKNOWN MEDICAL EQUIPMENT PROVIDER * List name and contact numbers for known caregivers / representatives who currently or will assist patient after discharge: DARREN BANGURA, FRIEND, * Verbal permission to speak to the caregivers and representatives has been obtained from the patient. N/A * Community resources currently utilized None * Please name any agencies selected above. NONE * Additional services required to return to the preadmission environment? No * Can the patient safely return to the preadmission environment? Yes * Has this patient been hospitalized within the prior 30 days at any hospital? No Last DP export: 03/24/19 1:34 p Patient Name: MILTON TAVERAS Page 20574 at 1442 All edits/amendments must be made on the electronic document DICTATION DATE: 03/24/19 144 FORMER HAND: RADHA 03/24/19 1442 RPT#: [id number] DC DATE: STATUS: ADM IN [facility] [address] [place] [address] END OF REPORT
--- NOTE | 2019-03-24 15:30 | NUR ---
LEFT AC 20G IV DC'D WITH CATH INTACT. DISCHARGE INSTRUCTIONS GIVEN TO PT AND ALL QUESTIONS ANSWERED. PT WANTING SOMETHING THAT HAS THAT HE TOOK METHADONE WHILE HE WAS HERE THAT HE CAN GIVE TO THE CLINIC SO HE CAN GET HIS NEXT SCRIT. I VERBALIZED UNDERSTANDING. DE SWARTZ AND I PRINTED THE ORDER FOR METHADONE AND THIS NURSE GAVE PT THE COPY. PT SIGNED DISCHARGE PAPERS. PT WAITING FOR NEXT BUS TO COME BEFORE BEING TAKEN DOWN.
--- NOTE | 2019-03-24 16:25 | NUR ---
[facility] TO [facility] WITH BELONG[facility] TO WAIT ON BUS.
== END 2019-03-24 16:26 | disposition home or self-care (01) | DRG 194 ==
LOC: D.ER 12:53 → D.M2 18:58
PROVIDERS: Family Medicine; ADMIT Family Medicine; ATTEND Family Medicine
DX: J18.1 Lobar pneumonia, unspecified organism (principal); J44.0 Chronic obstructive pulmonary disease with (acute) lower respiratory infection; N17.9 Acute kidney failure, unspecified; J44.1 Chronic obstructive pulmonary disease with (acute) exacerbation; M50.30 Other cervical disc degeneration, unspecified cervical region; M51.36 Other intervertebral disc degeneration, lumbar region; M51.34 Other intervertebral disc degeneration, thoracic region; B19.20 Unspecified viral hepatitis C without hepatic coma; F41.9 Anxiety disorder, unspecified; I10 Essential (primary) hypertension; D64.9 Anemia, unspecified; I25.10 Atherosclerotic heart disease of native coronary artery without angina pectoris

== ENCOUNTER 2020-02-26 10:56 | Emergency (ER) | payer MEDICARE, MEDICAID ==
[~2020-02-26] VITALS: Ht 170.2 cm; Wt 118.2 kg
[~2020-02-26 10:56] MED LIST changes: +STERAPRED DS 1010 MG PO; +ZITHROMAX500 MG PO
[2020-02-26 10:59] VITALS: BP 149/92; Ht 170.2 cm; Wt 118.2 kg
[2020-02-26] MEDS ORDERED: KLONOPIN0.5 MG (11:02)
[2020-02-26 12:04] LABS: BASOPHILS 0.3 % (0-2); EOSINOPHILS 1.3 % (0-7); HEMATOCRIT 41.9 % (42.0-54.0); HEMOGLOBIN 14.5 g/dL (13.5-17.5); IMMATURE GRANULOCYTES 0.3 % (0-5); LYMPHOCYTES 25.9 % (15-50); MCH 31.3 pg (26.0-34.0); MCHC 34.6 g/dL (31.0-37.0); MCV 90.3 fL (80.0-100.0); MONOCYTES 5.7 % (2-11); NEUTROPHILS 66.5 % (40-80); PLATELET COUNT 163 10x3/uL (130-400); RBC 4.64 10x6/uL (4.20-6.10); RDW 13.2 % (11.5-14.5); WBC 6.4 10x3/uL (4.8-10.8)
[2020-02-26 12:17] LABS: APTT 26.1 SECONDS (22.8-39.4); INR 0.94 (0.85-1.17); PROTIME 12.6 SECONDS (11.6-15.0)
[2020-02-26 12:21] LABS: CALC OSMOLALITY 275 mosm/kg (275-300); CALCIUM 8.6 mg/dL (8.5-10.1); CHLORIDE - SERUM 104 mmol/L (98-107); CREATININE - SERUM 1.1 mg/dL (0.6-1.3); GLUCOSE 124 mg/dL (74-106); SODIUM 138 mmol/L (136-145); UREA NITROGEN 9 mg/dL (7-18); eGFR NON AFRICAN AMERICAN 72 mL/min (90-120)
[2020-02-26 12:30] LABS: ALBUMIN 3.7 g/dL (3.4-5.0); ALKALINE PHOSPHATASE 69 U/L (30-120); ALT (SGPT) 25 U/L (10-68); PROTEIN - SERUM 6.5 g/dL (6.4-8.2)
[2020-02-26 12:33] LABS: TROPONIN-I < 0.017 ng/mL (0.000-0.060)
[2020-02-26 15:14] LABS: BILIRUBIN NEGATIVE (NEGATIVE); KETONE SMALL mg/dL (NEGATIVE); NITRITE NEGATIVE (NEGATIVE); UROBILINOGEN NORMAL mg/dL (< 2)
[2020-02-26 15:26] LABS: UDS - AMPHET NEGATIVE QUAL (NEGATIVE); UDS - BARB NEGATIVE QUAL (NEGATIVE); UDS - BENZO NEGATIVE QUAL (NEGATIVE); UDS - COCAINE NEGATIVE QUAL (NEGATIVE); UDS - OPIATE NEGATIVE QUAL (NEGATIVE); UDS - PCP NEGATIVE QUAL (NEGATIVE); UDS - THC NEGATIVE QUAL (NEGATIVE)
== END 2020-02-26 17:49 | disposition home or self-care (01) ==
LOC: D.ER 10:56
PROVIDERS: Family Medicine
DX: R51.9 Headache, unspecified (principal); B34.8 Other viral infections of unspecified site; R11.2 Nausea with vomiting, unspecified; I10 Essential (primary) hypertension; J44.9 Chronic obstructive pulmonary disease, unspecified; Z72.0 Tobacco use

== ENCOUNTER 2020-08-04 11:38 | Emergency (ER) | payer MEDICARE, MEDICAID ==
[~2020-08-04] VITALS: Ht 170.2 cm; Wt 108.6 kg
[~2020-08-04 11:38] MED LIST changes: +KLONOPIN0.5 MG PO
[2020-08-04 11:42] VITALS: BP 134/81; Ht 170.2 cm; Wt 108.6 kg
[2020-08-04] MEDS ORDERED: HYDROCODON-ACE1 EAC7 PO (12:23)
== END 2020-08-04 12:43 | disposition home or self-care (01) ==
LOC: D.ER 11:38
DX: S82.491A Other fracture of shaft of right fibula, initial encounter for closed fracture (principal); M25.571 Pain in right ankle and joints of right foot; M79.10 Myalgia, unspecified site; J44.9 Chronic obstructive pulmonary disease, unspecified; W01.10XA Fall on same level from slipping, tripping and stumbling with subsequent striking against unspecified object, initial encounter; Y93.9 Activity, unspecified; Y92.9 Unspecified place or not applicable

== ENCOUNTER 2020-08-06 09:13 | Day surgery (SDC) | payer MEDICARE, MEDICAID ==
[~2020-08-06] VITALS: Ht 170.2 cm; Wt 108.6 kg
[~2020-08-06 09:13] MED LIST changes: +HYDROCODON-ACE1 EAC7 PO
[2020-08-06 13:26] VITALS: BP 133/76; BMI 37.5
[2020-08-06 13:27] LABS: BASOPHILS 0.3 % (0-2); EOSINOPHILS 2.1 % (0-7); HEMATOCRIT 45.9 % (42.0-54.0); HEMOGLOBIN 14.9 g/dL (13.5-17.5); IMMATURE GRANULOCYTES 0.1 % (0-5); LYMPHOCYTE ABS# 1.82 10x3/uL (1.32-3.57); LYMPHOCYTES 25.2 % (15-50); MCH 29.6 pg (26.0-34.0); MCHC 32.5 g/dL (31.0-37.0); MCV 91.1 fL (80.0-100.0); MEAN PLATELET VOLUME 10.1 fL (7.4-10.4); MONOCYTES 10.8 % (2-11); NEUTROPHIL ABS# 4.43 10x3/uL (1.78-5.38); NEUTROPHILS 61.5 % (40-80); PLATELET COUNT 179 10x3/uL (130-400); RBC 5.04 10x6/uL (4.20-6.10); RDW 13.5 % (11.5-14.5); WBC 7.2 10x3/uL (4.8-10.8)
[2020-08-06 13:33] LABS: ALBUMIN 3.8 g/dL (3.4-5.0); ANION GAP 10.4 mmol/L (8-16); BILIRUBIN - TOTAL 0.58 mg/dL (0.2-1.3); CALCIUM 8.7 mg/dL (8.5-10.1); CREATININE - SERUM 1.2 mg/dL (0.6-1.3); POTASSIUM - SERUM 4.4 mmol/L (3.5-5.1); PROTEIN - SERUM 7.2 g/dL (6.4-8.2)
[2020-08-06 16:23] VITALS: BP 128/73
[2020-08-06 16:46] VITALS: BP 123/68; Ht 170.2 cm; Wt 108.6 kg
[2020-08-06 20:00] VITALS: BP 104/58
[2020-08-07] VITALS: BP 145/68
[2020-08-07 04:00] VITALS: BP 99/62
[2020-08-07 06:24] LABS: BASOPHILS 0 % (0-2); EOSINOPHILS 0 % (0-7); HEMATOCRIT 42.6 % (42.0-54.0); HEMOGLOBIN 13.8 g/dL (13.5-17.5); IMMATURE GRANULOCYTES 0.1 % (0-5); LYMPHOCYTE ABS# 0.64 10x3/uL (1.32-3.57); LYMPHOCYTES 7.7 % (15-50); MCH 29.6 pg (26.0-34.0); MCHC 32.4 g/dL (31.0-37.0); MCV 91.4 fL (80.0-100.0); MEAN PLATELET VOLUME 10.7 fL (7.4-10.4); MONOCYTES 6.2 % (2-11); NEUTROPHIL ABS# 7.17 10x3/uL (1.78-5.38); PLATELET COUNT 201 10x3/uL (130-400); RBC 4.66 10x6/uL (4.20-6.10); RDW 13.4 % (11.5-14.5); WBC 8.3 10x3/uL (4.8-10.8)
[2020-08-07 06:38] LABS: ALBUMIN 3.2 g/dL (3.4-5.0); ALKALINE PHOSPHATASE 70 U/L (30-120); ALT (SGPT) 19 U/L (10-68); CALCIUM 8.4 mg/dL (8.5-10.1); CARBON DIOXIDE 26.3 mmol/L (21.0-32.0); CHLORIDE - SERUM 105 mmol/L (98-107); POTASSIUM - SERUM 4.5 mmol/L (3.5-5.1); PROTEIN - SERUM 6.4 g/dL (6.4-8.2); SODIUM 137 mmol/L (136-145); eGFR NON AFRICAN AMERICAN 80 mL/min (90-120)
[2020-08-07 06:40] LABS: CALC OSMOLALITY 276 mosm/kg (275-300); GLUCOSE 154 mg/dL (74-106); UREA NITROGEN 13 mg/dL (7-18)
--- NOTE | 2020-08-07 08:31 | NUR ---
PT ASSISTED TO SIT ON THE SIDE OF THE BED SO HE CAN URINATE. VOICES UNDERSTANDING THAT WE NEED TO WAIT ON PT TO GET UP AND AROUND. CL IN REACH. NO FURTHER NEEDS AT THIS TIME. PT STATES HE WOULD LIKE SOME PRUNE JUICE LATER. WCTM
[2020-08-07 09:16] VITALS: BP 113/64
--- NOTE | 2020-08-07 10:33 | NUR ---
PT CALLED ME INTO HIS ROOM AND STATED THAT SOMEONE TOOK HIS 65 DOLLARS. THEY DID NOT SEE HIS STATED 600 DOLLARS IS STILL IN HIS BLACK WALLET AND THAT THEY DIDN'T TAKE IT BECAUSE THEY DIDN'T SEE IT. ASKED PT IF HE MIGHT'VE PLACED IT IN HIS LOCK BOX. WHICH HE DID NOT WE LOOKED. WE DID PLACE PT BLACK WALLET INTO THE LOCK BOX WITH HIS MEDS. PT HAS CARLOS AROUND HIS NECK. NO MONEY WAS FOUND IN PATIENTS OTHER BELONGINGS. CALLED ER TO SPEAK WITH THE PEOPLE WHO ARE IN CHARGE OF THE SAFE. THERE IS NOTHING IN THE SAFE FOR HIM. CALLED KERLINE BREWER RN TO NOTIFY HER. SHE TOLD ME TO HAVE PT CALL ADMINISTRATION OR JACKER SUNDAY. WILL ADVISE PT OF THIS. CL IN REACH. JASS
--- NOTE | 2020-08-07 12:49 | NUR ---
MEDICATIONS AND 600 DOLLARS TAKEN TO PHARMACY IN PT LOCK BOX. CL IN REACH. COUNTED MEDS WITH SHERIDAN RITTER. CL IN REACH. NO FURHTER NEEDS AT THIS TIME. JASS
[2020-08-07 14:22] VITALS: BP 113/65
[2020-08-07 18:32] VITALS: BP 114/60
[2020-08-07 21:25] VITALS: BP 135/54
[2020-08-08 05:41] VITALS: BP 123/75
[2020-08-08 05:53] LABS: BASOPHILS 0.3 % (0-2); EOSINOPHILS 1.1 % (0-7); HEMATOCRIT 39.3 % (42.0-54.0); HEMOGLOBIN 12.8 g/dL (13.5-17.5); IMMATURE GRANULOCYTES 0.1 % (0-5); LYMPHOCYTE ABS# 2.19 10x3/uL (1.32-3.57); LYMPHOCYTES 30.9 % (15-50); MCH 29.7 pg (26.0-34.0); MCHC 32.6 g/dL (31.0-37.0); MCV 91.2 fL (80.0-100.0); MEAN PLATELET VOLUME 10.9 fL (7.4-10.4); MONOCYTES 8.6 % (2-11); NEUTROPHIL ABS# 4.17 10x3/uL (1.78-5.38); PLATELET COUNT 169 10x3/uL (130-400); RBC 4.31 10x6/uL (4.20-6.10); RDW 13.5 % (11.5-14.5); WBC 7.1 10x3/uL (4.8-10.8)
[2020-08-08 06:32] LABS: ANION GAP 9.6 mmol/L (8-16); BILIRUBIN - TOTAL 0.17 mg/dL (0.2-1.3); CALCIUM 8.1 mg/dL (8.5-10.1); CARBON DIOXIDE 29.2 mmol/L (21.0-32.0); CREATININE - SERUM 1.1 mg/dL (0.6-1.3); POTASSIUM - SERUM 3.8 mmol/L (3.5-5.1); PROTEIN - SERUM 5.9 g/dL (6.4-8.2)
[2020-08-08] MEDS ORDERED: ASPIRIN81 MG PO (07:18)
--- NOTE | 2020-08-08 07:25 | OP ---
PATIENT NAME: MILTON CORONADO MEDICAL RECORD: [id number] :57 LOCATION:D.MS [id number] ADMISSION DATE: SURGEON: MIGUEL LEWIS DO DATE OF OPERATION: 08/06/2020 PROCEDURE PERFORMED: Right distal fibula open reduction and internal fixation. PREOPERATIVE DIAGNOSIS: Right distal fibula fracture, displaced. POSTOPERATIVE DIAGNOSIS: Right distal fibula fracture, displaced. INDICATIONS: Mr. Coronado is a 64-year-old male who fractured his right distal fibula, was seen in the ER and then brought to my clinic I believe yesterday and x-rays that were taken were seen. We informed him we need to fix this as it was displaced and can displace more and his talus could sublux laterally and he will have ankle problems the rest of his life. He was aware of that and he was okay with kind of fix. He was also aware of the risks of infection, bleeding, damage to nerves or vessels in the area, continued pain, blood clots, need for hardware removal, failure of implants, permanent nerve damage and even and signed the consent. SURGEON: Miguel Lewis DO. DESCRIPTION OF PROCEDURE: The patient received a block by anesthesia in the preoperative area, taken to the operative suite, given 2 grams of Ancef, sedated and LMA was placed in the supine position. The right lower extremity was then prepped and draped in sterile fashion. A timeout was performed and everyone was in agreement with correct side, site, patient and procedure. I then exsanguinated the right lower extremity. The tourniquet was inflated to 350 mmHg and it was up for 23 minutes. I then made an incision over the fibula and made careful dissection down to the fibula, cleared out the fracture site and reduced it with a [id number] and put on a Regis plate and pinned into place. Once this was in adequate position on AP and lateral, I put a proximal screw in the shaft and then 4 screws distally and another locking screw in the shaft. I then removed the K-wires. X-rays were taken in AP and mortise views. Stress view did not widen medially and in lateral, everything was in good position. We then irrigated and closed with 2-0 Vicryl in inverted interrupted fashion. The tourniquet was then let down. He was then dressed with a ZipLine and Adaptic, 4 x 4, ABD on the heel and wrapped up with cast padding and then a 4 x 30 splint posteriorly and secured with an Shiv wrap. He was then awakened and taken to recovery in stable condition. BLOOD LOSS: Minimal. COMPLICATIONS: None. TRANSINT:[id number] Voice Confirmation ID: [id number] DOCUMENT ID: [id number] OPERATIVE REPORT [id number] MILTON CORONADO,MIGUEL Sibley DO at 0725 CC: [id number] DICTATION DATE: 08/06/20 1532 ELECTRICIAN DECK: 08/07/20 0114 REG [facility] [address] [place] [address]
[2020-08-08 08:26] VITALS: BP 152/76
--- NOTE | 2020-08-08 10:16 | MORECARE ---
CASE MANAGEMENT DISCHARGE SUMMARY PATIENT: MILTON TAVERAS UNIT: [id number] ADM DATE: 08/06/20 AGE: 64 : 57 SEX: M ROOM/BED: D.2213 AUTHOR: SRINIVAS PAYNE PHYSICIAN: REFERRING PHYSICIAN: SHELDON LEWIS DO DATE OF SERVICE: 08/08/20 Case Management Discharge Planning Summary COMMENTS ENTERED DATE: 08/08/20 10:14 CT COMMENT TYPE: Discharge Planning REVIEWER: Demetrio Eisenberg CM met with patient to complete DC plan and to evaluate needs. Patient stated that he lives alone, independently. At discharge, the patient plans to return home and feels this is a safe discharge. CM discussed availability of home health, rehab services, and medical equipment. Patient declined HHS, SNF, and IPR. Patient stated that he needs a wheelchair. Crutches noted at bedside. Coordination with [facility] for wheelchair underway. ALBERTO signed and placed on chart. Clinicals and Wheelchair Request faxed to [facility]. Patient voiced no other needs at this time and is satisfied with DC plan. Transportation provider at discharge will be with his girlfriend, Darren Bangura ([phone]). DC IMM delivered, explained, signed by the patient, and placed in chart. Signed form also left with the patient. CM will continue to follow and will assist as needed with dc plans/needs. DCP REVIEW SUMMARY ANTICIPATED D/C DATE: 08/08/2020 EXPECTED LOS : 2 CASE STATUS: DCP Initiated INITIAL REVIEW: 08/08/2020 INITIAL REVIEWER: Demetrio Eisenberg FINAL DISCHARGE DISPOSITION: : FINAL REVIEWER: FINAL REVIEW DATE: DCP Focus Questions & Answers DCP REV -DCP Review Added on: 08/08/20 10:13 am QUESTION: ANSWER DCP Evaluation Patient gives permission to discuss discharge plans with: (name, relationship and number) : DARREN BANGURA girlfriend Phone# unverified Physical Status: : Independent with ADL's Baseline cognitive status: : *Oriented to person, place, situation, time and present Patient's ability to cope with chronic illness : d. No chronic illness Living Arrangements: : Home Alone with Support Medication Management: : Patient states can afford medications Does Patient have transportation to get home and to follow-up medical appointments when discharged from the hospital? : Yes Does the patient have electricity at home? : Yes Does the patient have running water in their house? : Yes Equipment in use: : Crutches Mental health screen: : No mental health history Patient's current cognitive status: : *Oriented to person, place, situation, time and present Functional screen assessment: : Basic needs can adequately be met by self Patient with capacity for self-care or can be cared for in same environment as prior to hospitalization? : Yes Does the patient have the ability to pay for or attain post discharge needs / services? : Yes Is there a likelihood that the patient will require additional services to return to the preadmission environment? : Yes Patient and/or caregiver agree upon recommended discharge plan? : Yes Equipment needed for post hospitalization: : Wheelchair Physical environment modification needed / anticipated for discharge: : No Planned post hospital services available for patient? : Yes Would patient like to participate in any Care Coordination programs (if applicable): : Not applicable DCP Re-evaluation Would patient like to participate in any Care Coordination programs (if applicable): : Not applicable PATIENT: MILTON TAVERAS ENCOUNTER: [id number] MEDICAL RECORD#: [id number] ADMISSION DATE: 08/06/2020 DISCHARGE DATE: ATTENDING MD: SHELDON BARRIENTOS : AGE: 64 MARITAL STATUS: S DC PLAN ID: [id number] FACILITY: [facility] PRINTED ON: 08/08/20 10:16 CT All edits/amendments must be made on the electronic document DICTATION DATE: 08/08/20 1016 TIGHT COOPER: RADHA 08/08/20 1016 RPT#: [id number] DC DATE: STATUS: [facility] [address] [place] [address] END OF REPORT
--- NOTE | 2020-08-08 10:19 | NUR ---
RECIEVED MEDICATIONS AND 600$ FROM PHARMACY. RECOUNTED BY SHERIDAN IVAN AND MYSELF. THERE WAS ONE METHADONE LIQUID THAT I MISSED COUNTING YESTERDAY. 7 HYDROCODONE'S 5325. 54 CLONAZEPAM 2 MG. 23 EMPTY METADON LIQUID 100 MG. 4 100 MG METHADONE LIQUID RETURNED.
--- NOTE | 2020-08-08 14:49 | NUR ---
IV THERAPY REMOVED FROM LEFT FOREARM WITH TIP INTACT. DISCHARGE INSTRUCTIONS GIVEN. PT VERBALIZED UNDERSTANDING. PT ALSO VERBALIZED UNDERSTANDING OF CALLING DR LEWIS'S OFFICE AND GETTING A FOLLOW UP APPOINTMENT. PT NOW REQUESTING HOME HEALTH. I INFORMED SAMIR WITH CASE MANAGEMENT. CL IN REACH. LEILATM
--- NOTE | 2020-08-08 17:27 | MORECARE ---
CASE MANAGEMENT DISCHARGE SUMMARY PATIENT: MILTON TAVERAS UNIT: [id number] ADM DATE: 08/06/20 AGE: 64 : 57 SEX: M ROOM/BED: AUTHOR: ELMER,DOC PHYSICIAN: REFERRING PHYSICIAN: SHELDON LEWIS DO DATE OF SERVICE: 08/08/20 Case Management Discharge Planning Summary COMMENTS ENTERED DATE: 08/08/20 10:14 CT COMMENT TYPE: Discharge Planning REVIEWER: Demetrio Eisenberg CM met with patient to complete DC plan and to evaluate needs. Patient stated that he lives alone, independently. At discharge, the patient plans to return home and feels this is a safe discharge. CM discussed availability of home health, rehab services, and medical equipment. Patient declined HHS, SNF, and IPR. Patient stated that he needs a wheelchair. Crutches noted at bedside. Coordination with [facility] for wheelchair underway. ALBERTO signed and placed on chart. Clinicals and Wheelchair Request faxed to [facility]. Patient voiced no other needs at this time and is satisfied with DC plan. Transportation provider at discharge will be with his girlfriend, Darren Bangura ([phone]). DC IMM delivered, explained, signed by the patient, and placed in chart. Signed form also left with the patient. CM will continue to follow and will assist as needed with dc plans/needs. DCP REVIEW SUMMARY ANTICIPATED D/C DATE: 08/08/2020 EXPECTED LOS : 2 CASE STATUS: DCP Initiated INITIAL REVIEW: 08/08/2020 INITIAL REVIEWER: Demetrio Eisenberg FINAL DISCHARGE DISPOSITION: : FINAL REVIEWER: FINAL REVIEW DATE: DCP Focus Questions & Answers DCP REV -DCP Review Added on: 08/08/20 10:13 am QUESTION: ANSWER DCP Evaluation Patient gives permission to discuss discharge plans with: (name, relationship and number) : DARREN BANGURA, girlfriend Phone# unverified Physical Status: : Independent with ADL's Baseline cognitive status: : *Oriented to person, place, situation, time and present Patient's ability to cope with chronic illness : d. No chronic illness Living Arrangements: : Home Alone with Support Medication Management: : Patient states can afford medications Does Patient have transportation to get home and to follow-up medical appointments when discharged from the hospital? : Yes Does the patient have electricity at home? : Yes Does the patient have running water in their house? : Yes Equipment in use: : Crutches Mental health screen: : No mental health history Patient's current cognitive status: : *Oriented to person, place, situation, time and present Functional screen assessment: : Basic needs can adequately be met by self Patient with capacity for self-care or can be cared for in same environment as prior to hospitalization? : Yes Does the patient have the ability to pay for or attain post discharge needs / services? : Yes Is there a likelihood that the patient will require additional services to return to the preadmission environment? : Yes Patient and/or caregiver agree upon recommended discharge plan? : Yes Equipment needed for post hospitalization: : Wheelchair Physical environment modification needed / anticipated for discharge: : No Planned post hospital services available for patient? : Yes Would patient like to participate in any Care Coordination programs (if applicable): : Not applicable DCP Re-evaluation Would patient like to participate in any Care Coordination programs (if applicable): : Not applicable PATIENT: MILTON TAVERAS ENCOUNTER: [id number] MEDICAL RECORD#: [id number] ADMISSION DATE: 08/06/2020 DISCHARGE DATE: 08/08/2020 ATTENDING MD: SHELDON BARRIENTOS : AGE: 64 MARITAL STATUS: S DC PLAN ID: [id number] FACILITY: [facility] PRINTED ON: 08/08/20 17:27 CT All edits/amendments must be made on the electronic document DICTATION DATE: 08/08/201726 BATTERY CHARGER TESTER: RADHA 08/08/201726 RPT#: [id number] DC DATE:08/08/20 STATUS: [facility] [address] [place] [address] END OF REPORT
== END 2020-08-08 17:24 | disposition home or self-care (01) ==
LOC: D.OPS 09:13 → D.MS 13:17 → D.OPS 08-08 17:24
PROVIDERS: Anesthesiology; Emergency Medicine; ATTEND Orthopaedic Surgery
DX: S82.491A Other fracture of shaft of right fibula, initial encounter for closed fracture (principal); X58.XXXA Exposure to other specified factors, initial encounter; J44.9 Chronic obstructive pulmonary disease, unspecified; Z72.0 Tobacco use

== ENCOUNTER 2020-08-20 12:34 | Inpatient (IN) | payer MEDICARE, MEDICAID ==
[~2020-08-20] VITALS: Ht 170.2 cm; Wt 105.2 kg
--- NOTE | ~2020-08-20 | EC ---
PATIENT:MILTON TAVERAS DATE OF SERVICE: 08/20/20 SEX: M MEDICAL RECORD: [id number] DATE OF : 57 LOCATION:D. D.211 AGE OF PATIENT: 64 ADMISSION DATE: 08/20/20 REFERRING PHYSICIAN: INTERPRETING PHYSICIAN: JOSELINE BURGESS MD ECHOCARDIOGRAM REPORT ECHO CHARGES 4 ECHO COMPLETE Date: 08/22/20 CLINICAL DIAGNOSIS: PTE, ASSESS FOR CLOTS ECHOCARDIOGRAPHIC MEASUREMENTS (adult normal given) AC root (d.<3.7cm) 3.5 cm LV Septum d (<1.2 cm> 1.0 cm Valve Excursion 1.6 cm LV Septum (systole) 1.5 cm Left Atria (s.<4.0cm> 4.6 cm LVPW d(<1.2cm) 1.4 cm RV (d.<2.3cm) 3.3 cm LVPW (sytole) 1.8 cm LV diastole(<5.6CM) 5.3 cm MV E-F(>70mm/sec) cm LV systole 3.6 cm LVOT Diameter 2.2 cm MV exc.(>10mm) 2.0 cm Est.ejection fraction (50-75%) % DOPPLER: LVIT cm/sec A 57.0 cm/sec E 79.0 cm/sec LA cm/sec RVSP 30 mmHg LVOT 74 cm/sec AOP1/2T m/s Asc. Ao 96 cm/sec RVOT 69 cm/sec RA cm/sec PA 108 cm/sec AV Gradient Peak 3.72 mmHg AV Mean 1.97 mmHg AV Area 2.9 cm MV Gradient Peak 2.99 mmHg MV Mean 0.90 mmHg MV Area cm COMMENTS: Staff Training And Development Manager: 2 DENIZ NOVOA Operational Risk Manager: 5 Dr. Burgess TAPE# PACS Pericardial Effusion N DATE OF SERVICE: CLINICAL DIAGNOSIS: Tricuspid regurgitation. INTERPRETATION: This is a technically difficult study. Overall, normal left ventricular chamber size and contractile function, ejection fraction of 55% to 60%. FINDINGS: Left atrial chamber is mildly dilated. Right atrium and right ventricular chamber is not well visualized, but appeared normal. Mitral valve ECHOCARDIOGRAM REPORT [id number] MILTON TAVERAS appears normal. No mitral regurgitation. Aortic valve appears normal. No aortic regurgitation or stenosis. Tricuspid valve appears normal, but not well visualized. Mild tricuspid regurgitation. Pulmonic valve is not well visualized, but appears normal. No pulmonary regurgitation. No pericardial effusion visualized. IMPRESSION: Technically difficult study, overall, normal left ventricular chamber size and contractile function, ejection fraction 55% to 60%. TRANSINT:[id number] Voice Confirmation ID: [id number] DOCUMENT ID: [id number] JOSELINE BURGESS MD CC: [id number] DICTATION DATE: 08/22/20 1440 VIDEO SYSTEMS ENGINEER: 08/22/20 2145 ADM IN [facility] [address] [place] [id number]
[~2020-08-20 12:34] MED LIST changes: +ASPIRIN81 MG PO
[2020-08-20 13:32] LABS: BASOPHILS 0.2 % (0-2); EOSINOPHILS 1.1 % (0-7); HEMOGLOBIN 13.8 g/dL (13.5-17.5); IMMATURE GRANULOCYTES 0.3 % (0-5); LYMPHOCYTE ABS# 1.08 10x3/uL (1.32-3.57); LYMPHOCYTES 11.2 % (15-50); MCH 29.7 pg (26.0-34.0); MCHC 32.1 g/dL (31.0-37.0); MCV 92.5 fL (80.0-100.0); MEAN PLATELET VOLUME 10.2 fL (7.4-10.4); MONOCYTES 8.9 % (2-11); NEUTROPHIL ABS# 7.52 10x3/uL (1.78-5.38); NEUTROPHILS 78.3 % (40-80); PLATELET COUNT 249 10x3/uL (130-400); RBC 4.65 10x6/uL (4.20-6.10); WBC 9.6 10x3/uL (4.8-10.8)
[2020-08-20 13:41] LABS: CALC OSMOLALITY 269 mosm/kg (275-300); CALCIUM 8.4 mg/dL (8.5-10.1); CARBON DIOXIDE 29.5 mmol/L (21.0-32.0); CHLORIDE - SERUM 99 mmol/L (98-107); CREATININE - SERUM 1.1 mg/dL (0.6-1.3); GLUCOSE 111 mg/dL (74-106); INR 1.03 (0.85-1.17); POTASSIUM - SERUM 4.3 mmol/L (3.5-5.1); PROTIME 12.5 SECONDS (11.6-15.0); SODIUM 135 mmol/L (136-145); UREA NITROGEN 9 mg/dL (7-18); eGFR NON AFRICAN AMERICAN 72 mL/min (90-120)
[2020-08-20 13:54] LABS: D-DIMER-QUANTITATIVE 3.43 ug/mLFEU (0.20-0.54)
[2020-08-20 13:55] LABS: ALBUMIN 3.2 g/dL (3.4-5.0); ALKALINE PHOSPHATASE 82 U/L (30-120); ALT (SGPT) 15 U/L (10-68); BILIRUBIN - TOTAL 0.54 mg/dL (0.2-1.3); CKMB 0.2 U/L (0.0-3.6); CREATINE KINASE 78 UL (21-232); PRO BNP 444 pg/mL (0-125); TROPONIN-I < 0.017 ng/mL (0.000-0.060)
[2020-08-20 16:57] LABS: CREATINE KINASE 67 UL (21-232); TROPONIN-I < 0.017 ng/mL (0.000-0.060)
--- NOTE | 2020-08-20 17:34 | NUR ---
PT TO ROOM FROM ER. ASKING FOR SOMETHING TO EAT AND WHAT CAN HE HAVE FOR PAIN. DAVE WRAP BANDAGE TO RIGHT ANKLE IN PLACE. OXYGEN AT 3LNC.
--- NOTE | 2020-08-20 19:30 | NUR ---
RECEIVED REPORT, WILL ASSUME CARE OF PT, PLACED ON TELEMTRY, ASKING FOR A BLANKET, WILL PROVIDE, BED IS LOW, SRX2, CALL LIGHT IN REACH, WILL CONTINUE PLAN OF CARE
[2020-08-20 22:50] VITALS: BP 118/66
[2020-08-21] VITALS (7 sets, daily range): BP systolic 98–131; BP diastolic 53–68; BMI 37.5
--- NOTE | 2020-08-21 03:38 | NUR ---
ADMISSION ASSESSMENT COMPLETED AT THIS TIME.
[2020-08-21 06:57] LABS: BASOPHILS 0.2 % (0-2); HEMATOCRIT 38.4 % (42.0-54.0); HEMOGLOBIN 12.2 g/dL (13.5-17.5); IMMATURE GRANULOCYTES 0.4 % (0-5); LYMPHOCYTE ABS# 1.52 10x3/uL (1.32-3.57); LYMPHOCYTES 15.2 % (15-50); MCH 29.2 pg (26.0-34.0); MCHC 31.8 g/dL (31.0-37.0); MCV 91.9 fL (80.0-100.0); MONOCYTES 11.8 % (2-11); NEUTROPHIL ABS# 7.15 10x3/uL (1.78-5.38); NEUTROPHILS 71.4 % (40-80); PLATELET COUNT 223 10x3/uL (130-400); RBC 4.18 10x6/uL (4.20-6.10); RDW 13.1 % (11.5-14.5)
[2020-08-21 07:35] LABS: ALBUMIN 2.7 g/dL (3.4-5.0); ALKALINE PHOSPHATASE 68 U/L (30-120); ALT (SGPT) 12 U/L (10-68); BILIRUBIN - TOTAL 0.51 mg/dL (0.2-1.3); CALC OSMOLALITY 263 mosm/kg (275-300); CALCIUM 8.2 mg/dL (8.5-10.1); CARBON DIOXIDE 28.2 mmol/L (21.0-32.0); CHLORIDE - SERUM 99 mmol/L (98-107); CKMB 0.5 U/L (0.0-3.6); CREATINE KINASE 54 UL (21-232); GLUCOSE 114 mg/dL (74-106); PROTEIN - SERUM 6.3 g/dL (6.4-8.2); SODIUM 132 mmol/L (136-145); TROPONIN-I < 0.017 ng/mL (0.000-0.060); UREA NITROGEN 8 mg/dL (7-18); eGFR NON AFRICAN AMERICAN 80 mL/min (90-120)
--- NOTE | 2020-08-21 09:05 | NUR ---
PT AWAKE AND ORIENTED, LYING IN BED EATING BREAFKAST. C/O NOT HAVING A BM FOR THE PAST 7 DAYS. PT C/O HISMEDICATIONS NOT BEING RESTARTED, STATING HE HAS TO HAVE HIS METHADONE RESTARTED OR IT WILL KILL HIM. INFORMED DIRECTOR OF SCOUT WORK. CL IN REACH,S RX2.
--- NOTE | 2020-08-21 12:46 | NUR ---
PT AWAKE AND ORIENTED, LYING IN BED WATCHING T/V. STATES HE FEELS BETTER NOW THAT HE HAS GOTTEN HIS METHADONE. NO COMPLAINTS OR CONCERNS AT THIS TIME. CL IN REACH, SRX2.
--- NOTE | 2020-08-21 17:09 | NUR ---
PT AWAKE AND ORIENTED, LYING IN BED EATING SUPPER. PT AMBULATES UNASSISTED WITHOUT NOTED OR REPORTED DIFFICULTY. NO COMPLAINTS OR CONCERNNS AT THIS TIME. CL IN REACH, SRX2.
--- NOTE | 2020-08-21 19:30 | NUR ---
PT IN BED, AAO X 3, RESP EVEN AND UNLABORED, NO DISTRESS NOTED, CL IN REACH, SR UP X 2.
[2020-08-22 04:30] VITALS: BP 132/70
--- NOTE | 2020-08-22 04:38 | NUR ---
I have reviewed this patient and I concur with the Shift Assessment completed by the Licensed Practical Nurse today this shift.
[2020-08-22 06:21] LABS: ALBUMIN 2.5 g/dL (3.4-5.0); ALKALINE PHOSPHATASE 65 U/L (30-120); ALT (SGPT) 14 U/L (10-68); BILIRUBIN - TOTAL 0.24 mg/dL (0.2-1.3); CALC OSMOLALITY 268 mosm/kg (275-300); CALCIUM 8.1 mg/dL (8.5-10.1); CARBON DIOXIDE 27.2 mmol/L (21.0-32.0); CHLORIDE - SERUM 100 mmol/L (98-107); GLUCOSE 119 mg/dL (74-106); PROTEIN - SERUM 5.9 g/dL (6.4-8.2); SODIUM 134 mmol/L (136-145); eGFR NON AFRICAN AMERICAN 80 mL/min (90-120)
[2020-08-22 06:22] LABS: UREA NITROGEN 12 mg/dL (7-18)
[2020-08-22 06:57] LABS: BASOPHILS 0.1 % (0-2); EOSINOPHILS 1.5 % (0-7); HEMATOCRIT 34.3 % (42.0-54.0); HEMOGLOBIN 11.1 g/dL (13.5-17.5); IMMATURE GRANULOCYTES 0.4 % (0-5); LYMPHOCYTE ABS# 1.38 10x3/uL (1.32-3.57); LYMPHOCYTES 18.5 % (15-50); MCH 29.5 pg (26.0-34.0); MCHC 32.4 g/dL (31.0-37.0); MCV 91.2 fL (80.0-100.0); MEAN PLATELET VOLUME 11.2 fL (7.4-10.4); MONOCYTES 13.9 % (2-11); NEUTROPHIL ABS# 4.89 10x3/uL (1.78-5.38); NEUTROPHILS 65.6 % (40-80); RBC 3.76 10x6/uL (4.20-6.10); WBC 7.5 10x3/uL (4.8-10.8)
[2020-08-22 07:23] LABS: PLATELET COUNT 171 10x3/uL (130-400)
[2020-08-22 08:35] VITALS: BP 126/66
--- NOTE | 2020-08-22 08:51 | NUR ---
PT RESTING COMFORTBALY. EYES CLOSED, BREATHS EVEN/REGULAR/UNLABORED.NO SIGNS OR SYMPTOMS OF ACUTE DISTRESS AT THIS TIME. NO FAMILY AT BEDSIDE. CL IN REACH, SRX2.
[2020-08-22 12:10] VITALS: BP 126/66
[2020-08-22 16:16] VITALS: BP 130/71
--- NOTE | 2020-08-22 16:57 | NUR ---
PT ALERT AND ORIENTED, LYING IN BED EATING SUPPER. REQUESTS TO SHOWER POST SUPPER. WILL ACCOMIDATE. CL IN REACH,S RX2.
--- NOTE | 2020-08-22 17:50 | NUR ---
I have reviewed this patient and I concur with the Shift Assessment completed by the Licensed Practical Nurse today this shift.
[2020-08-22 22:30] VITALS: BP 123/72
[2020-08-23 04:00] VITALS: BP 112/67
[2020-08-23 06:10] LABS: BASOPHILS 0.1 % (0-2); EOSINOPHILS 1.1 % (0-7); HEMATOCRIT 35.7 % (42.0-54.0); HEMOGLOBIN 11.4 g/dL (13.5-17.5); IMMATURE GRANULOCYTES 0.4 % (0-5); LYMPHOCYTE ABS# 1.31 10x3/uL (1.32-3.57); LYMPHOCYTES 18.7 % (15-50); MCH 28.9 pg (26.0-34.0); MCHC 31.9 g/dL (31.0-37.0); MCV 90.4 fL (80.0-100.0); MEAN PLATELET VOLUME 10.7 fL (7.4-10.4); NEUTROPHILS 65.7 % (40-80); RBC 3.95 10x6/uL (4.20-6.10); RDW 12.9 % (11.5-14.5)
[2020-08-23 06:20] LABS: PLATELET COUNT 231 10x3/uL (130-400)
[2020-08-23 06:31] LABS: ALBUMIN 2.3 g/dL (3.4-5.0); ALKALINE PHOSPHATASE 72 U/L (30-120); ALT (SGPT) 16 U/L (10-68); BILIRUBIN - TOTAL 0.36 mg/dL (0.2-1.3); CALC OSMOLALITY 266 mosm/kg (275-300); CALCIUM 8.2 mg/dL (8.5-10.1); CARBON DIOXIDE 27.9 mmol/L (21.0-32.0); CHLORIDE - SERUM 101 mmol/L (98-107); CREATININE - SERUM 0.9 mg/dL (0.6-1.3); GLUCOSE 103 mg/dL (74-106); PROTEIN - SERUM 5.9 g/dL (6.4-8.2); SODIUM 134 mmol/L (136-145); UREA NITROGEN 10 mg/dL (7-18); eGFR NON AFRICAN AMERICAN > 90 mL/min (90-120)
--- NOTE | 2020-08-23 08:13 | NUR ---
PO MEDS GIVEN AT THIS TIME. PLAN OF CARE REVIEWED AND ASSESSMENT HAS BEEN COMPLETED PATIENT DENIES NEEDS. CALL LIGHT IN REACH
[2020-08-23 08:58] VITALS: BP 125/68
[2020-08-23 15:53] VITALS: BP 112/61
[2020-08-23 20:00] VITALS: BP 113/58
--- NOTE | 2020-08-23 20:17 | NUR ---
RECIEVED UP IN BED WITH EYES OPEN AND TV ON. ALERT AND ORIETNED X4. UP WITH WALKER. USES URINAL IN BED. IV TO LT AC WITH NS AT 50CC/HR. DSG TO RT ANKLE CDI. TELEMETRY IN PLACE. DENIES ANY NEEDS AT THIS TIME.
[2020-08-24 04:00] VITALS: BP 111/69
[2020-08-24 05:59] LABS: BASOPHILS 0.2 % (0-2); IMMATURE GRANULOCYTES 0.5 % (0-5); LYMPHOCYTES 28.4 % (15-50); MCH 29.1 pg (26.0-34.0); MCHC 32.4 g/dL (31.0-37.0); MCV 89.8 fL (80.0-100.0); MEAN PLATELET VOLUME 10.2 fL (7.4-10.4); MONOCYTES 11.8 % (2-11); NEUTROPHIL ABS# 3.56 10x3/uL (1.78-5.38); NEUTROPHILS 56.1 % (40-80); PLATELET COUNT 265 10x3/uL (130-400); RBC 4.12 10x6/uL (4.20-6.10); RDW 13.3 % (11.5-14.5); WBC 6.3 10x3/uL (4.8-10.8)
[2020-08-24 06:29] LABS: ALBUMIN 2.4 g/dL (3.4-5.0); ALKALINE PHOSPHATASE 86 U/L (30-120); BILIRUBIN - TOTAL 0.32 mg/dL (0.2-1.3); CALC OSMOLALITY 267 mosm/kg (275-300); CALCIUM 8.1 mg/dL (8.5-10.1); CARBON DIOXIDE 26.8 mmol/L (21.0-32.0); CHLORIDE - SERUM 101 mmol/L (98-107); GLUCOSE 83 mg/dL (74-106); POTASSIUM - SERUM 4.2 mmol/L (3.5-5.1); PROTEIN - SERUM 6.5 g/dL (6.4-8.2); SODIUM 135 mmol/L (136-145); UREA NITROGEN 11 mg/dL (7-18); eGFR NON AFRICAN AMERICAN 80 mL/min (90-120)
[2020-08-24 06:32] LABS: ALT (SGPT) 23 U/L (10-68)
[2020-08-24 07:28] VITALS: BP 140/71
[2020-08-24 11:11] LABS: HAPTOGLOBIN 353 mg/dL (32-363)
--- NOTE | 2020-08-24 14:47 | NUR ---
ORDER FOR REHAB PRESCREEN RECEIVED. WENT TO PATIENTS ROOM TO DISCUSS COMING TO INPATIENT REHAB. PT NOT VERY HAPPY. HE STATED "YOU GUYS ARE NOT GOING TO FORCE ME OUT OF HERE. I PROBABLY WON'T BE READY TO GO ANYWHERE FOR A WHILE. YOU GUYS DON'T KNOW WHAT YOU ARE SENDING ME OUT OF HERE TO." THIS LEAD TO A 20 MINUTE CONVERSATION ON HOW HE FEELS UNSAFE IN THE GOVERNMENT HOUSING THAT HE LIVES IN AND EVEN THOUGH HE IS PAYING HIS RENT, HE HAS TO SLEEP IN HIS CARE BECAUSE OF THE DAMAGE BEING DONE TO IT. HE ALSO WENT INTO HOW HE CAN'T AFFORD TO MOVE ANYWHERE ELSE BECAUSE IT WOULD TAKE HIS WHOLE CHECK ($800/MONTH), AND HE HAS TO HAVE MONEY TO LIVE ON. HE ENDED THE CONVERSATION TALKING ABOUT HOW HIM AND HIS EX WERE GOING TO TRY TO MOVE IN TOGETHER AND GIVE IT ANOTHER TRY, BUT SHE WILL NOT GO ANYWHERE WITHOUT THEIR DRUG ADDICT 35 YEAR OLD SON. HE WANTS US TO FIX WHAT HE IS DISCHARGING INTO, USED THE PHRASE "YOU HAVE TO MAKE SURE I HAVE A SAFE DISCHARGE". ALL THIS INFORMATION WAS RELAYED TO SHERIDAN VERDIN CM, AND I ENCOURAGED HIM TO CALL US IF THE PATIENT CHANGES HIS MIND. EXPLAINED THAT HE HAS [facility] AND WOULD REQUIRE A PREAUTH WHEN/IF THE TIME COMES. THANK YOU FOR THIS REFERRAL. OSMAN CHURCHILL RN CLINICAL LIAISON, INPATIENT REHAB.
[2020-08-24 15:00] VITALS: BP 111/69
--- NOTE | 2020-08-24 19:37 | MORECARE ---
CASE MANAGEMENT DISCHARGE SUMMARY PATIENT: MILTON TAVERAS KELLY UNIT: [id number] ADM DATE: 08/20/20 AGE: 64 : 57 SEX: M ROOM/BED: D.[facility] AUTHOR: ELMER,DOC PHYSICIAN: REFERRING PHYSICIAN: LAKESHA REYNOSO MD DATE OF SERVICE: 08/24/20 Case Management Discharge Planning Summary COMMENTS ENTERED DATE: 08/24/20 19:26 CT COMMENT TYPE: Discharge Planning REVIEWER: Demetrio Eisenberg Late Entry for 1300. CM team informed by Inpatient rehab, [facility] that patient declines rehab and would like to speak about alternatives to returning home. CM Team will follow up with patient Soon. CM will continue to follow and will assist as needed with dc plans/needs DCP REVIEW SUMMARY ANTICIPATED D/C DATE: EXPECTED LOS : CASE STATUS: DCP Initiated INITIAL REVIEW: 08/20/2020 INITIAL REVIEWER: Demetrio Eisenberg FINAL DISCHARGE DISPOSITION: : FINAL REVIEWER: FINAL REVIEW DATE: DCP Focus Questions & Answers QUESTION: ANSWER : PATIENT: MILTON TAVERAS ENCOUNTER: [id number] MEDICAL RECORD#: [id number] ADMISSION DATE: 08/20/2020 DISCHARGE DATE: ATTENDING MD: LAKESHA GAMEZ : AGE: 64 MARITAL STATUS: S DC PLAN ID: [id number] FACILITY: [facility] PRINTED ON: 08/24/20 19:37 CT All edits/amendments must be made on the electronic document DICTATION DATE: 08/24/201936 BOILER ROOM HELPER: RADHA 08/24/201936 RPT#: [id number] DC DATE: STATUS: ADM IN [facility] [address] [place] [address] END OF REPORT
--- NOTE | 2020-08-24 19:48 | MORECARE ---
CASE MANAGEMENT DISCHARGE SUMMARY PATIENT: MILTON TAVERAS UNIT: [id number] ADM DATE: 08/20/20 AGE: 64 : 57 SEX: M ROOM/BED: D.2111 AUTHOR: ELMER,DOC PHYSICIAN: REFERRING PHYSICIAN: LAKESHA REYNOSO MD DATE OF SERVICE: 08/24/20 Case Management Discharge Planning Summary COMMENTS ENTERED DATE: 08/24/20 19:47 CT COMMENT TYPE: Discharge Planning REVIEWER: Demetrio Eisenberg CM met with patient to complete DC plan and to evaluate needs. Patient lives independently in a high-rise apartment. Patient listed his former life partner of 30 years as his person to notify, Daphne Pearson, . Patient stated that his high rise is safe and has electricity and running water. Patient stated that he has no problems paying for medications and he fills his medications at [facility] [address] and [facility]. Patient stated that his primary physician is Dr. Patricio. CM discussed availability of home health, rehab services, and medical equipment. Patient declined HHS, SNF, and DME. Patient stated that he would like to strengthen before going home and is in agreement with [facility] Inpatient Rehab. ALBERTO for [facility] Inpatient Rehab signed and placed on chart. Patient stated he has a Wheel Chair, Walker, and a cane. Patient voiced no other needs at this time and is satisfied with DC plan. Patient stated that he has his car in the parking lot and will transport himself after Rehab. DC IMM delivered, explained, signed by the patient, and placed in chart. Signed form also left with the patient. CM will continue to follow and will assist as needed with dc plans/needs. ENTERED DATE: 08/24/20 19:26 CT COMMENT TYPE: Discharge Planning REVIEWER: Demetrio Eisenberg Late Entry for 1300. CM team informed by Inpatient rehab, [facility] that patient declines rehab and would like to speak about alternatives to returning home. CM Team will follow up with patient Soon. CM will continue to follow and will assist as needed with dc plans/needs DCP REVIEW SUMMARY ANTICIPATED D/C DATE: EXPECTED LOS : CASE STATUS: DCP Initiated INITIAL REVIEW: 08/20/2020 INITIAL REVIEWER: Demetrio Eisenberg FINAL DISCHARGE DISPOSITION: : FINAL REVIEWER: FINAL REVIEW DATE: DCP Focus Questions & Answers DCP Evaluation QUESTION: ANSWER Patient and/or caregiver agree upon recommended discharge plan? : Yes Patient's current cognitive status: : *Oriented to person, place, situation, time and present Patient's ability to cope with chronic illness : d. No chronic illness Patient gives permission to discuss discharge plans with: (name, relationship and number) : former life partner, Daphne Pearson, Does the patient have the ability to pay for or attain post discharge needs / services? : Yes Functional screen assessment: : Basic needs can adequately be met by self Physical Status: : Mobility impaired Physical Status: : Independent with ADL's Is there a likelihood that the patient will require additional services to return to the preadmission environment? : Yes Living Arrangements: : Home Alone with Support Patient with capacity for self-care or can be cared for in same environment as prior to hospitalization? : Yes Living arrangements comments: : Lives alone in a high rise apartment. minimal support from former life partner Baseline cognitive status: : *Oriented to person, place, situation, time and present Physical environment modification needed / anticipated for discharge: : No Medication Management: : Patient states can read and understand medication labels Medication Management: : Patient states can afford medications Pharmacy name(s): : [facility] Does Patient have transportation to get home and to follow-up medical appointments when discharged from the hospital? : Yes Would patient like to participate in any Care Coordination programs (if applicable): : Not applicable Does the patient have electricity at home? : Yes Does the patient have running water in their house? : Yes Equipment in use: : Wheelchair Equipment in use: : Walker - Rolling Equipment in use: : Cane - Single Leg Other Equipment comments: : HOME OXYGEN, COMPANY UNKNOWN - PATIENT CANNOT REMEMBER THE NAME OF THE COMPANY Mental health screen: : No mental health history DCP Re-evaluation QUESTION: ANSWER Would patient like to participate in any Care Coordination programs (if applicable): : Not applicable PATIENT: MILTON TAVERAS ENCOUNTER: [id number] MEDICAL RECORD#: [id number] ADMISSION DATE: 08/20/2020 DISCHARGE DATE: ATTENDING MD: LAKESHA GAMEZ : AGE: 64 MARITAL STATUS: S DC PLAN ID: [id number] FACILITY: [facility] PRINTED ON: 08/24/20 19:47 CT All edits/amendments must be made on the electronic document DICTATION DATE: 08/24/201946 HEAT AND VENT AIRCRAFT MECHANIC: RADHA 08/24/201946 RPT#: [id number] DC DATE: STATUS: ADM IN [facility] [address] [place] [address] END OF REPORT
--- NOTE | 2020-08-24 20:30 | NUR ---
PT IN BED, AAO X 3, RESP EVEN AND UNLABORED, NO DISTRESS NOTED, CL IN REACH, SR UP X 2.
[2020-08-24 21:00] VITALS: BP 111/65
[2020-08-24 23:56] VITALS: BP 98/57
[2020-08-25 04:00] VITALS: BP 101/58
--- NOTE | 2020-08-25 05:46 | NUR ---
I have reviewed this patient and I concur with the Shift Assessment completed by the Licensed Practical Nurse today this shift.
[2020-08-25 06:25] LABS: BASOPHILS 0.2 % (0-2); HEMATOCRIT 36.4 % (42.0-54.0); HEMOGLOBIN 11.5 g/dL (13.5-17.5); IMMATURE GRANULOCYTES 0.4 % (0-5); LYMPHOCYTE ABS# 1.06 10x3/uL (1.32-3.57); LYMPHOCYTES 20.2 % (15-50); MCH 28.5 pg (26.0-34.0); MCHC 31.6 g/dL (31.0-37.0); MCV 90.3 fL (80.0-100.0); MEAN PLATELET VOLUME 10.1 fL (7.4-10.4); MONOCYTES 13.5 % (2-11); NEUTROPHIL ABS# 3.24 10x3/uL (1.78-5.38); NEUTROPHILS 61.7 % (40-80); PLATELET COUNT 283 10x3/uL (130-400); RBC 4.03 10x6/uL (4.20-6.10); RDW 13.4 % (11.5-14.5); WBC 5.3 10x3/uL (4.8-10.8)
--- NOTE | 2020-08-25 07:00 | NUR ---
Lying in bed, awake/alert/oriented, t/r self ad tanesha, cont of b/b with use of bsc/urinal ad tanesha, denies pain/other discomfort at this time, states he has sharp pain at base of his chest that comes/goes mainly when he inhales, call light/phone/water within reach, no s/s of acute distress observed.
[2020-08-25 07:02] LABS: ALBUMIN 2.3 g/dL (3.4-5.0); ALKALINE PHOSPHATASE 86 U/L (30-120); CALC OSMOLALITY 270 mosm/kg (275-300); CALCIUM 8.2 mg/dL (8.5-10.1); CHLORIDE - SERUM 102 mmol/L (98-107); GLUCOSE 90 mg/dL (74-106); POTASSIUM - SERUM 4.1 mmol/L (3.5-5.1); SODIUM 136 mmol/L (136-145); UREA NITROGEN 10 mg/dL (7-18); eGFR NON AFRICAN AMERICAN 80 mL/min (90-120)
[2020-08-25 07:04] LABS: ALT (SGPT) 31 U/L (10-68)
[2020-08-25 08:01] VITALS: BP 115/62
[2020-08-25 08:13] LABS: ACLA - IGG AB <9 GPL U/mL (0-14); ACLA - IGM AB 16 MPL U/mL (0-12)
[2020-08-25 11:17] VITALS: BP 110/68
[2020-08-25 12:11] LABS: PROTEIN S - FREE 63 % (57-157); PROTEIN S - TOTAL 69 % (60-150)
[2020-08-25 14:10] LABS: PROTEIN S - FREE 69 % (57-157); PROTEIN S - FUNCTIONAL 61 % (63-140); PROTEIN S - TOTAL 64 % (60-150)
[2020-08-25 15:24] VITALS: BP 106/62
--- NOTE | 2020-08-25 16:43 | NUR ---
OT NOTE: UPON ENTERING ROOM PT WAS TRANSFERRING TO BATHROOM. PT EXHIBITED POOR SAFETY AWARENESS. PT EXHIBITED UNSAFE WALKER MANAGEMENT. PT EDUCATED ON PROPER WALKER MANAGEMENT. PT COMPLETED FACE HYGIENE WITH SETUP. PT COMPLETED SHAVING WITH SETUP. PT STATED HE HAD PARASITES THAT HAVE TWO PROBES. HE STATED THEY ARE ALIEN PARASITES. DIAZ NOTIFIED NURSING OF PT COMMENTS. DIAZ STATED PT IS UNSAFE DURING TSF. DIAZ AND ELECTRIC SOLDERER PUT BED ALARM IN PT BED. NURSING APPROVED AND IS AWARE. PT EDUCATED ON USE OF CL. [phone] THANK YOU,JOE WORRELL
[2020-08-25 19:27] VITALS: BP 123/62
--- NOTE | 2020-08-25 19:30 | NUR ---
PT IN BED, AAO X 4, RESP EVEN AND UNLABORED, NO DISTRESS NOTED, CL IN REACH, SR UP X 2.
[2020-08-26 03:08] LABS: IMMUNOGLOBULIN E 176 IU/mL (6-495)
--- NOTE | 2020-08-26 03:40 | NUR ---
I have reviewed this patient and I concur with the Shift Assessment completed by the Licensed Practical Nurse today this shift.
[2020-08-26 05:12] LABS: BASOPHILS 0.2 % (0-2); EOSINOPHILS 4.8 % (0-7); HEMATOCRIT 37.7 % (42.0-54.0); HEMOGLOBIN 11.9 g/dL (13.5-17.5); IMMATURE GRANULOCYTES 0.4 % (0-5); LYMPHOCYTE ABS# 1.49 10x3/uL (1.32-3.57); LYMPHOCYTES 26.3 % (15-50); MCH 28.3 pg (26.0-34.0); MCHC 31.6 g/dL (31.0-37.0); MCV 89.5 fL (80.0-100.0); MEAN PLATELET VOLUME 9.5 fL (7.4-10.4); MONOCYTES 11.3 % (2-11); NEUTROPHIL ABS# 3.24 10x3/uL (1.78-5.38); PLATELET COUNT 300 10x3/uL (130-400); RBC 4.21 10x6/uL (4.20-6.10); RDW 13.2 % (11.5-14.5); WBC 5.7 10x3/uL (4.8-10.8)
[2020-08-26 05:36] LABS: ALBUMIN 2.4 g/dL (3.4-5.0); ALKALINE PHOSPHATASE 90 U/L (30-120); ALT (SGPT) 31 U/L (10-68); BILIRUBIN - TOTAL 0.33 mg/dL (0.2-1.3); CALC OSMOLALITY 271 mosm/kg (275-300); CALCIUM 8.4 mg/dL (8.5-10.1); CARBON DIOXIDE 27.2 mmol/L (21.0-32.0); CHLORIDE - SERUM 101 mmol/L (98-107); GLUCOSE 94 mg/dL (74-106); PROTEIN - SERUM 6.2 g/dL (6.4-8.2); SODIUM 136 mmol/L (136-145); UREA NITROGEN 13 mg/dL (7-18); eGFR NON AFRICAN AMERICAN 80 mL/min (90-120)
--- NOTE | 2020-08-26 07:00 | NUR ---
Sitting up in bed, awake/alert/oriented, T/R self ad tanesha, cont of B/B with BRPs with assist ad tanesha, denies pain/other discomfort at this time, call light/phone/water within reach, no s/s of acute distress observed.
[2020-08-26 08:25] VITALS: BP 119/70
[2020-08-26 09:13] LABS: HEXAGONAL PHASE PHOS 0 sec (0-11); LUPUS - INTERPRETATION Comment: (()); LUPUS - THROMBIN TIME 14.7 sec (0.0-23.0); LUPUS - dRVVT 43.2 sec (0.0-47.0); PTT-LA 56.6 sec (0.0-51.9); PTT-LA MIX 54.8 sec (0.0-48.9)
--- NOTE | 2020-08-26 11:38 | NUR ---
@8910, I SPOKE WITH CARMELO FROM [facility] ([facility]), AND PATIENTS AUTH REQUEST IS STILL SHOWING PENDING. I WILL CONTINUE TO FOLLOW UP WITH THEM. OSMAN CHURCHILL RN CLINICAL LIAISON, INPATIENT REHAB.
[2020-08-26 12:23] VITALS: BP 114/66
[2020-08-26 12:48] VITALS: Ht 170.2 cm; Wt 105.2 kg
--- NOTE | 2020-08-26 16:24 | NUR ---
OT NOTE: PT COMPLETED BED MOB TASKS WITH SBA. PT COMPLETED ADL MOB WITH RW WITH SBA. PT COMPLETED TOILETING HYGIENE WITH SBA. PT COMPLETED BUE AROM EXS TOLERATED AT EOB. PT COMPLETED A SERIES OF SIT TO STANDS WITH SBA. [phone] THANK YOU,JOE WORRELL
--- NOTE | 2020-08-26 19:30 | NUR ---
PT IN BED, AAO X 3, RESP EVEN AND UNLABORED, NO DISTRESS NOTED, CL IN REACH, SR UP X 2.
[2020-08-26 19:54] VITALS: BP 109/72
[2020-08-27 04:59] VITALS: BP 96/59
--- NOTE | 2020-08-27 06:18 | NUR ---
I have reviewed this patient and I concur with the Shift Assessment completed by the Licensed Practical Nurse today this shift.
[2020-08-27 06:44] LABS: ALBUMIN 2.5 g/dL (3.4-5.0); ALKALINE PHOSPHATASE 95 U/L (30-120); ALT (SGPT) 29 U/L (10-68); BILIRUBIN - TOTAL 0.22 mg/dL (0.2-1.3); CALC OSMOLALITY 275 mosm/kg (275-300); CALCIUM 8.4 mg/dL (8.5-10.1); CARBON DIOXIDE 28.4 mmol/L (21.0-32.0); CHLORIDE - SERUM 102 mmol/L (98-107); GLUCOSE 113 mg/dL (74-106); MAGNESIUM - SERUM 2.2 mg/dL (1.8-2.4); POTASSIUM - SERUM 4.2 mmol/L (3.5-5.1); PROTEIN - SERUM 6.3 g/dL (6.4-8.2); SODIUM 137 mmol/L (136-145); UREA NITROGEN 14 mg/dL (7-18); eGFR NON AFRICAN AMERICAN 80 mL/min (90-120)
[2020-08-27 06:53] LABS: BASOPHILS 0.4 % (0-2); EOSINOPHILS 4.2 % (0-7); HEMATOCRIT 37.7 % (42.0-54.0); HEMOGLOBIN 11.9 g/dL (13.5-17.5); IMMATURE GRANULOCYTES 0.9 % (0-5); LYMPHOCYTE ABS# 1.32 10x3/uL (1.32-3.57); LYMPHOCYTES 23.2 % (15-50); MCH 28.7 pg (26.0-34.0); MCHC 31.6 g/dL (31.0-37.0); MCV 90.8 fL (80.0-100.0); MEAN PLATELET VOLUME 9.8 fL (7.4-10.4); MONOCYTES 11.4 % (2-11); NEUTROPHIL ABS# 3.41 10x3/uL (1.78-5.38); NEUTROPHILS 59.9 % (40-80); PLATELET COUNT 321 10x3/uL (130-400); RBC 4.15 10x6/uL (4.20-6.10); RDW 13.4 % (11.5-14.5); WBC 5.7 10x3/uL (4.8-10.8)
--- NOTE | 2020-08-27 07:00 | NUR ---
Lying in bed with eyes closed, respirations slow/deep/even, rouses easily with verbal stimulus, T/R self ad tanesha, cont of B/B with BRPs with assist ad tanesha, denies pain/other discomfort at this time, call light/phone/water within reach, no s/s of acute distress observed.
[2020-08-27 08:29] VITALS: BP 135/76
--- NOTE | 2020-08-27 10:22 | NUR ---
PHYSICAL THERAPY HAS SIGNED OFF ON THE PATIENT STATING THERE IS NO NEED FOR SERVICE. UNFORTUNATELY HE WILL NOT MEET CRITERIA FOR ACUTE INPATIENT REHAB. I HAVE DISCUSSED THIS WITH PAT MARSHALL RN CM.
[2020-08-27] MEDS ORDERED: ELIQUIS5 MG PO (10:53)
[2020-08-27 12:11] LABS: PROTEIN C - ANTIGEN 83 % (60-150); PROTEIN C - FUNCTIONAL 78 % (73-180)
--- NOTE | 2020-08-27 12:57 | MORECARE ---
CASE MANAGEMENT DISCHARGE SUMMARY PATIENT: MILTON TAVERAS UNIT: [id number] ADM DATE: 08/20/20 AGE: 64 : 57 SEX: M ROOM/BED: D.2111 AUTHOR: ELMER,DOC PHYSICIAN: REFERRING PHYSICIAN: LAKESHA REYNOSO MD DATE OF SERVICE: 08/27/20 Case Management Discharge Planning Summary COMMENTS ENTERED DATE: 08/27/20 12:41 CT COMMENT TYPE: Discharge Planning REVIEWER: Debra Ridley CM received discharge orders. I received a call from Jacqui in inpatient rehab that he does not qualify because PT signed off for no skilled need. I spoke with patient and offered home health and he declines. States his 'ex" is able to help him with all his needs. He states that if he needs home health, he will notify Dr. Patricio. He states that he has home oxygen with portability and a nebulizer. No needs identified at this time. ENTERED DATE: 08/24/20 19:47 CT COMMENT TYPE: Discharge Planning REVIEWER: Demetrio Eisenberg CM met with patient to complete DC plan and to evaluate needs. Patient lives independently in a high-rise apartment. Patient listed his former life partner of 30 years as his person to notify, Daphne Pearson, . Patient stated that his high rise is safe and has electricity and running water. Patient stated that he has no problems paying for medications and he fills his medications at [facility]. Patient stated that his primary physician is Dr. Patricio. CM discussed availability of home health, rehab services, and medical equipment. Patient declined HHS, SNF, and DME. Patient stated that he would like to strengthen before going home and is in agreement with [facility] Inpatient Rehab. ALBERTO for [facility] Inpatient Rehab signed and placed on chart. Patient stated he has a Wheel Chair, Walker, and a cane. Patient voiced no other needs at this time and is satisfied with DC plan. Patient stated that he has his car in the parking lot and will transport himself after Rehab. DC IMM delivered, explained, signed by the patient, and placed in chart. Signed form also left with the patient. CM will continue to follow and will assist as needed with dc plans/needs. ENTERED DATE: 08/24/20 19:26 CT COMMENT TYPE: Discharge Planning REVIEWER: Demetrio Eisenberg Late Entry for 1300. CM team informed by Inpatient rehab, [facility] that patient declines rehab and would like to speak about alternatives to returning home. CM Team will follow up with patient Soon. CM will continue to follow and will assist as needed with dc plans/needs DCP REVIEW SUMMARY ANTICIPATED D/C DATE: EXPECTED LOS : CASE STATUS: DCP Initiated INITIAL REVIEW: 08/20/2020 INITIAL REVIEWER: Demetrio Eisenberg FINAL DISCHARGE DISPOSITION: : FINAL REVIEWER: FINAL REVIEW DATE: DCP Focus Questions & Answers DCP Evaluation QUESTION: ANSWER Patient and/or caregiver agree upon recommended discharge plan? : Yes Patient's current cognitive status: : *Oriented to person, place, situation, time and present Patient's ability to cope with chronic illness : d. No chronic illness Patient gives permission to discuss discharge plans with: (name, relationship and number) : former life partner, Daphne Pearson, Does the patient have the ability to pay for or attain post discharge needs / services? : Yes Functional screen assessment: : Basic needs can adequately be met by self Physical Status: : Mobility impaired Physical Status: : Independent with ADL's Is there a likelihood that the patient will require additional services to return to the preadmission environment? : Yes Living Arrangements: : Home Alone with Support Patient with capacity for self-care or can be cared for in same environment as prior to hospitalization? : Yes Baseline cognitive status: : *Oriented to person, place, situation, time and present Living arrangements comments: : Lives alone in a high rise apartment. minimal support from former life partner Physical environment modification needed / anticipated for discharge: : No Medication Management: : Patient states can read and understand medication labels Medication Management: : Patient states can afford medications Pharmacy name(s): : [facility] [place] [facility] [address] Does Patient have transportation to get home and to follow-up medical appointments when discharged from the hospital? : Yes Would patient like to participate in any Care Coordination programs (if applicable): : Not applicable Does the patient have electricity at home? : Yes Does the patient have running water in their house? : Yes Equipment in use: : Wheelchair Equipment in use: : Walker - Rolling Equipment in use: : Cane - Single Leg Other Equipment comments: : HOME OXYGEN, COMPANY UNKNOWN - PATIENT CANNOT REMEMBER THE NAME OF THE COMPANY Mental health screen: : No mental health history DCP Re-evaluation QUESTION: ANSWER Would patient like to participate in any Care Coordination programs (if applicable): : Not applicable PATIENT: MILTON TAVERAS ENCOUNTER: [id number] MEDICAL RECORD#: [id number] ADMISSION DATE: 08/20/2020 DISCHARGE DATE: ATTENDING MD: LAKESHA GAMEZ : AGE: 64 MARITAL STATUS: S DC PLAN ID: [id number] FACILITY: [facility] PRINTED ON: 08/27/20 12:57 CT All edits/amendments must be made on the electronic document DICTATION DATE: 08/27/20 1257 WOUND/OSTOMY CLINICAL NURSE SPECIALIST: RADHA 08/27/20 1257 RPT#: [id number] DC DATE: STATUS: ADM IN [facility] [address] [place] [address] END OF REPORT
--- NOTE | 2020-08-27 13:00 | NUR ---
Provided written/verbal discharge instructions/education to which pt voiced understanding after asking a couple of questions, discontinued IV access.
--- NOTE | 2020-08-27 13:20 | NUR ---
Discharged home to self care via w/c in stable condition accompanied by hospital staff, no s/s of acute distress observed.
[2020-08-27 15:12] LABS: FACTOR II DNA ANALYSIS Negative (())
== END 2020-08-27 13:20 | disposition home or self-care (01) | DRG 175 ==
LOC: D.ER 12:34 → D.M2 16:28
PROVIDERS: Emergency Medicine; Internal Medicine Pulmonary Disease; ADMIT Emergency Medicine; ATTEND Emergency Medicine
DX: I26.99 Other pulmonary embolism without acute cor pulmonale (principal); J96.01 Acute respiratory failure with hypoxia; J18.9 Pneumonia, unspecified organism; J98.11 Atelectasis; B18.2 Chronic viral hepatitis C; J44.9 Chronic obstructive pulmonary disease, unspecified; G47.33 Obstructive sleep apnea (adult) (pediatric); E66.9 Obesity, unspecified; Z68.37 Body mass index [BMI] 37.0-37.9, adult; I10 Essential (primary) hypertension; E78.5 Hyperlipidemia, unspecified; D64.9 Anemia, unspecified; F41.9 Anxiety disorder, unspecified; Z86.718 Personal history of other venous thrombosis and embolism; Z87.01 Personal history of pneumonia (recurrent)

== ENCOUNTER 2020-09-02 19:01 | Emergency (ER) | payer MEDICARE, MEDICAID ==
[~2020-09-02] VITALS: Ht 170.2 cm; Wt 105.9 kg
[2020-09-02 19:30] VITALS: Ht 170.2 cm; Wt 105.9 kg
[2020-09-02 21:15] LABS: BASOPHILS 0.3 % (0-2); EOSINOPHILS 4.7 % (0-7); HEMATOCRIT 38.1 % (42.0-54.0); HEMOGLOBIN 12.4 g/dL (13.5-17.5); IMMATURE GRANULOCYTES 0.6 % (0-5); LYMPHOCYTE ABS# 1.87 10x3/uL (1.32-3.57); LYMPHOCYTES 19.5 % (15-50); MCH 28.6 pg (26.0-34.0); MCHC 32.5 g/dL (31.0-37.0); MEAN PLATELET VOLUME 9.6 fL (7.4-10.4); MONOCYTES 9.3 % (2-11); NEUTROPHILS 65.6 % (40-80); RBC 4.33 10x6/uL (4.20-6.10); RDW 13.4 % (11.5-14.5); WBC 9.6 10x3/uL (4.8-10.8)
[2020-09-02 21:19] LABS: PLATELET COUNT 247 10x3/uL (130-400)
[2020-09-02 21:29] LABS: ANION GAP 16.9 mmol/L (8-16); CALCIUM 8.5 mg/dL (8.5-10.1); CARBON DIOXIDE 22.9 mmol/L (21.0-32.0); CREATININE - SERUM 1.2 mg/dL (0.6-1.3); POTASSIUM - SERUM 3.8 mmol/L (3.5-5.1)
[2020-09-02 21:35] LABS: ALBUMIN 3.3 g/dL (3.4-5.0); BILIRUBIN - TOTAL 0.29 mg/dL (0.2-1.3); PROTEIN - SERUM 6.9 g/dL (6.4-8.2)
[2020-09-02 23:00] VITALS: BP 108/72
[2020-09-02 23:20] LABS: NITRITE NEGATIVE (NEGATIVE)
[2020-09-02 23:21] LABS: BILIRUBIN NEGATIVE (NEGATIVE); KETONE NEGATIVE (NEGATIVE); UROBILINOGEN NORMAL mg/dL (< 2)
== END 2020-09-03 00:09 | disposition home or self-care (01) ==
LOC: D.ER 19:01
PROVIDERS: Family Medicine
DX: R07.89 Other chest pain (principal); R10.9 Unspecified abdominal pain; Z86.711 Personal history of pulmonary embolism; J44.9 Chronic obstructive pulmonary disease, unspecified; Z72.0 Tobacco use